=== PATIENT | male | born 1940 | race Caucasian/White ===

== ENCOUNTER 2020-01-14 11:08 | Inpatient (IN) | payer OTHER ==
[2020-01-14 11:16] VITALS: BMI 23.0
[2020-01-14] MEDS ORDERED: SODIUM CHLORIDE 0.9% 1000 ML INFUS.BAG IV ONE (14:00)
[2020-01-14 14:01] LABS: BASO % 0.3 % (0-2.0); EOS % 0.5 % (0-4.5); HEMATOCRIT 42.2 % (35.4-49); HEMOGLOBIN 13.6 GM/dL (11.7-16.9); LYMPH % 8.1 % (8-40); MCH 24.5 pg (25.7-33.7); MCHC 32.3 g/dl (32.0-35.9); MEAN CELL VOLUME 75.9 fl (80-96); MEAN PLT VOLUME 8.6 fl (7.5-11.1); MONO % 7.2 % (3.8-10.2); NEUT % 83.9 % (42.8-82.8); PLATELET COUNT 252 K/MM3 (134-434); RBC 5.56 M/mm3 (4.00-5.60); RDW 16.3 % (11.9-15.9); WHITE BLOOD COUNT 10.1 K/mm3 (4.0-10.0)
[2020-01-14 14:36] LABS: ALBUMIN 3.6 g/dl (3.4-5.0); BILIRUBIN,TOTAL 0.8 mg/dL (0.2-1); BLOOD UREA NITROGEN 20.7 mg/dL (7-18); CALCIUM 9.3 mg/dL (8.5-10.1); CREATININE 1.1 mg/dL (0.55-1.3); TOT PROT 6.8 g/dl (6.4-8.2)
--- NOTE | 2020-01-14 17:11 | PDOC ---
History of Present Illness - General Chief Complaint: Constipation Stated Complaint: CONSTIPATION (1/WK) Time Seen by Provider: 01/14/20 11:59 History Source: Patient, Family - History of Present Illness Initial Comments: 01/14/20 17:39 79M w/hx BPH, HTN, recent evaluation for hematuria followed by Urology (Dr. Treadwell) on abx for UTI (keflex) p/w 6 days of ongoing constipation. Last bowel movement on 01/09/20. He is accompanied by his son. They report that he has had constipation previously. Over the last several days they have attempted miralax, colase at home without success. He denies any diarrhea, fevers, chills. He reports being unable to pass gas, with generalized weakness and abdominal disc omfort. Past History - Medical History Allergies/Adverse Reactions: Allergies Allergy/AdvReac Type Severity Reaction Status Date / Time No Known Allergies Allergy Verified 01/14/20 11:15 Home Medications: Ambulatory Orders Finasteride [Proscar -] 5 mg PO DAILY 11/12/19 Cephalexin [Keflex] 500 mg PO TID 01/14/20 Phenazopyridine HCl [Pyridium] 100 mg PO TID 01/14/20 Tamsulosin HCl [Flomax] 0.4 mg PO DAILY 01/14/20 Anemia: No Asthma: No Cancer: No Cardiac Disorders: No CVA: No COPD: No CHF: No Dementia: No Diabetes: No GI Disorders: No Disorders: Yes HTN: Yes Hypercholesterolemia: No Liver Disease: No Seizures: No Thyroid Disease: No - Psycho-Social/Smoking History Smoking History: Never smoked - Substance Abuse Hx (Audit-C & DAST Scrn) How often the patient has a drink containing alcohol: Never Score: In Men: 4 or > Positive; In Women: 3 or > Positive: 0 Screen Result (Pos requires Nsg. Audit-10AR): Negative *Physical Exam - Vital Signs Last Vital Signs Temp Pulse Resp BP Pulse Ox 98 F 102 H 18 151/78 98 01/14/20 11:11 01/14/20 11:11 01/14/20 11:11 01/14/20 11:11 01/14/20 11:11 ED Treatment Course - LABORATORY CBC & Chemistry Diagram: 01/14/20 13:30 01/14/20 13:30 - ADDITIONAL ORDERS Additional order review: Laboratory Results 01/14/20 13:30 Sodium 135 L Potassium 5.0 Chloride 94 L Carbon Dioxide 33 H Anion Gap 8 BUN 20.7 H Creatinine 1.1 Est GFR (CKD-EPI)AfAm 74.65 Est GFR (CKD-EPI)NonAf 64.41 Random Glucose 118 H Calcium 9.3 Total Bilirubin 0.8 AST 18 ALT 13 Alkaline Phosphatase 66 Total Protein 6.8 Albumin 3.6 01/14/20 13:30 RBC 5.56 MCV 75.9 L MCHC 32.3 RDW 16.3 H MPV 8.6 Neutrophils % 83.9 H Lymphocytes % 8.1 D Monocytes % 7.2 Eosinophils % 0.5 Basophils % 0.3 - RADIOLOGY Radiology Studies Ordered: Category Date Time Status ABDOMEN & PELVIS CT WITH CONTR [CT] Stat CT Scan 01/14/20 12:44 Ordered - Medications Given in the ED: ED Medications Discontinued Medications Generic Name Dose Route Start Last Admin Trade Name Freq PRN Reason Stop Dose Admin Sodium Chloride 1,000 ml 01/14/20 14:00 01/14/20 14:08 Normal Saline - IV 01/14/20 14:01 1,000 ml ONCE ONE Administration Medical Decision Making - Medical Decision Making 01/14/20 19:36 79M w/hx HTN, BPH, recent evaluation for hematuria p/w 6 days of constipation not relieved by usual maalox, colace. Ddx malignancy, SBO, vs uncomplicated constipation. Plan: CBC CMP CT abdomen/pelvis Enema pending CT EKG CXR Dispo: Pending 01/14/20 19:38 Discharge - Discharge Information Problems reviewed: Yes Clinical Impression/Diagnosis: Malignancy Condition: Stable - Admission Yes - Follow up/Referral Referrals: Rachel Santillan MD [Primary Care Provider] - - Patient Discharge Instructions - Post Discharge Activity
--- NOTE | 2020-01-14 18:49 | PDOC ---
Documentation entered by Florencio Wagoner SCRIBE, acting as scribe for Lonnie Madera MD. Lonnie Madera MD: This documentation has been prepared by the louiee, Florencio Wagoner SCRIBE, under my direction and personally reviewed by me in its entirety. I confirm that the documentation accurately reflects all work, treatment, procedures, and medical decision making performed by me. Attending Attestation - Resident Resident Name: SakinaJoe - ED Attending Attestation I have performed the following: I have examined & evaluated the patient, The case was reviewed & discussed with the resident, I agree w/resident's findings & plan, Exceptions are as noted - HPI HPI: 01/14/20 17:36 The patient is a 79 year old male with a significant past medical history of BPH (on finestaride, s/p prostate surgery 2018) and HTN who presents to the emergency department for evaluation of constipation that began one week ago. He notes generalized weakness, generalized abdominal pain, and decreased appetite secondary to constipation. As per patient, LBM was 8/11. The patient also endorses taking colace, miralax, and other OTC laxatives to no relief. The patient denies chest/back pain, cough, and shortness of breath. Denies fever, chills, nausea, vomiting, and/or any symptoms. Denies any other symptoms. Allergies: NKDA Social Hx: None reported PCP: Dr. Santillan Urologist: Eugene Ko - Physicial Exam PE: 01/14/20 17:13 Vitals: Triage vital signs reviewed General Appearance: No acute distress, well nourished, well developed Cardiac: Regular rate and rhythm, no murmurs, no rubs, no gallops Lungs: Clear to auscultation bilateral, good air movement bilaterally Abdomen: Soft, nondistended, normal bowel sounds, nontender to palpation Genitourinary: Rectal: No stool in vault Extremities: Full range of motion to all extremities, no cyanosis, clubbing, or edema Skin: Warm and dry, no rashes or lesions, no rash, no petechiae Psych: Normal mood, normal affect - Medical Decision Making 01/14/20 18:50 79 years old past medical history significant for prostate enlargement presents to the ED with several day history of constipation Mild diffuse abdominal pain on examination no significant stool in the vault a CAT scan was ordered which demonstrates an obstructive mass concerning for malignancy There is associated large bowel dilatation Patient will require admission hydration and surgical consultation All findings discussed with patient and family Discharge - Discharge Information Problems reviewed: Yes Clinical Impression/Diagnosis: Malignancy - Follow up/Referral Referrals: Rachel Santillan MD [Primary Care Provider] - - Patient Discharge Instructions - Post Discharge Activity
[2020-01-14 20:53] LABS: INR 1.14 (0.83-1.09); PROTHROMBIN TIME (PATIENT) 13.5 SEC (9.7-13.0)
[2020-01-14 20:55] LABS: ACTIVATED PTT 30.2 SECONDS (25.2-36.5)
--- NOTE | 2020-01-14 22:43 | PN ---
Teaching Attending Note Name of Resident: Marcy Bakrley ATTENDING PHYSICIAN STATEMENT I saw and evaluated the patient. I reviewed the resident's note and discussed the case with the resident. I agree with the resident's findings and plan as documented. SUBJECTIVE: Patient is a 79 year old man with a PMH of BPH (on Finestaride; prostate surgery in 2018), Hematuria, HTN (not on medication) and currently on Keflex for UTI who presents to the ER for evaluation of constipation that began one week ago. He notes generalized weakness, generalized abdominal pain and decreased appetite secondary to constipation. Reports last bowel movement was on 01/09/2020. Took Colace, Miralax and other OTC laxatives with no relief. Patient denies chest pain, shortness of breath, headache, palpitations, dizziness, fever, chills, nausea, vomiting, diarrhea, dysuria, frequency, urgency, melena, hematochezia or hematuria. Denies alcohol, tobacco or illicit drug use. No sick contacts or recent travels. Family history of unspecified cancer in sister and lung cancer in father. OBJECTIVE: Alert Vital Signs Period Temp Pulse Resp BP Sys/Mena Pulse Ox Last 24 Hr 97.4 F-98 F 74-102 18-18 151-193/77-78 98-98 HEENT: No Jaundice, eye redness or discharge, PERRLA, EOMI. Normocephalic, atraumatic. External ears are normal and hearing is grossly intact. No nasal discharge. Neck: Supple, nontender. No palpable adenopathy or thyromegaly. No JVD Chest: Good effort. Clear to auscultation and percussion. Heart: Regular. No S3, rub or murmur Abdomen: Distended, tense, diffuse abdominal tenderness and no HSM. No rebound or guarding. Normal bowel sounds. Ext: Peripheral pulses intact. No leg edema. Skin: Warm and dry. No petechiae, rash or ecchymosis. Neuro: Alert. Oriented x3. CN 2-12 grossly intact. Sensation grossly intact in all four extremities and DTR are symmetric. Psych: Appropriate mood and affect. Good insight. Home Medications Medication Instructions Recorded Finasteride [Proscar -] 5 mg PO DAILY 11/12/19 Cephalexin [Keflex] 500 mg PO TID 01/14/20 Phenazopyridine HCl [Pyridium] 100 mg PO TID 01/14/20 Tamsulosin HCl [Flomax] 0.4 mg PO DAILY 01/14/20 Abnormal Lab Results 01/14/20 01/14/20 01/14/20 13:30 13:30 20:00 WBC 10.1 H MCV 75.9 L MCH 24.5 L D RDW 16.3 H Absolute Neuts (auto) 8.5 H Neutrophils % 83.9 H PT with INR 13.50 H INR 1.14 H Sodium 135 L Chloride 94 L Carbon Dioxide 33 H BUN 20.7 H Random Glucose 118 H Current Medications Generic Name Dose Route Start Last Admin Trade Name Freq PRN Reason Stop Dose Admin Acetaminophen 1,000 mg 01/15/20 00:08 Ofirmev Injection - IVPB 01/16/20 00:08 Q8H PRN PAIN LEVEL 4 - 6 Finasteride 5 mg 01/15/20 10:00 Proscar - PO DAILY [facility] Hydralazine HCl 5 mg 01/15/20 02:49 Apresoline Injection - IVPUSH Q6H PRN HYPERTENSION Ceftriaxone Sodium 1,000 mg/ 50 mls @ 100 mls/hr 01/15/20 03:20 Dextrose IVPB 01/15/20 03:49 ONCE ONE Tamsulosin HCl 0.4 mg 01/15/20 08:30 Flomax - PO DAILY@0830 [facility] ASSESSMENT AND PLAN: 1. Bowel obstruction/constipation - CT scan of abdomen/pelvis shows an obstructive mass concerning for malignancy distal to obstructed sigmoid colon and associated large bowel dilatation. CXR shows cardiomegaly and calcified aortic knob with no evidence of acute lung disease. EKG shows NSR at 67/minute, PVCs, LAD, RBBB and QTc [address]-T wave changes. No old EKG available for comparison. Initial troponin is negative. Will keep him NPO, get urinalysis, give saline enema, give IV fluids (once BP improves) and consult Surgery. Will get urinalysis, stop the Keflex he was getting for UTI and start IV Ceftriaxone 1 gm q 24 hourd pending urine culture report. Viral testing for COVID-19 ordered and patient placed on airborne, droplet and contact isolation. Will continue comprehensive care for all of patients comorbid conditions including Flomax for BPH. 2. Hypertension For now will use IV Hydralazine 5 mg q 6 hour PRN for systolic BP>160 mmHg. Will start suitable oral antihypertensive drugs before discharge. Subsequently, will revise regimen to ensure [id number] excellent BP control. Patient counseled on the injurious effects of uncontrolled hypertension. Nonpharmacologic measures to control hypertension like weight loss, salt restriction and exercise stressed. Importance of adherence to treatment regimen and attainment of normotension emphasized. 3. DVT prophylaxis - SCD. 4. Advance directives - Full code
[2020-01-15] MEDS ORDERED: ACETAMINOPHEN 1000 MG/100 ML VIAL (NON FORMULARY) IVPB PRN (00:08)
[2020-01-15] MEDS ORDERED: SODIUM PHOSPHATE/NA BIPHOS 133 ML ENEMA RC ONE (00:13)
[2020-01-15] MEDS ORDERED: SODIUM CHLORIDE 1,000 ML IV SCH (00:15)
[2020-01-15] MEDS ORDERED: METOPROLOL TARTRATE 5 MG/5 ML VIAL IVPUSH ONE (00:20)
[2020-01-15] MEDS ORDERED: METOPROLOL TARTRATE 5 MG/5 ML VIAL ONE (00:31)
[2020-01-15] MEDS ORDERED: amLODIPine BESYLATE 5 MG TABLET (FP) PO ONE (01:48)
[2020-01-15] MEDS ORDERED: hydrALAZINE HCL 20 MG/ML VIAL IVPUSH PRN ×2 (02:18→02:49)
[2020-01-15] MEDS ORDERED: amLODIPine BESYLATE 5 MG TABLET (FP) ONE (02:27)
--- NOTE | 2020-01-15 02:29 | HP ---
CHIEF COMPLAINT: constipation PCP: Dr. Santillan HISTORY OF PRESENT ILLNESS: Pt is a 79 yo M with PMH of BPH, HTN, hematuria (in October, being evaluated by Urology outpatient), and recurrent UTIs (currently on Keflex) presenting with 6 days of constipation (last BM on 01/08). Took Colace, Miralax and other OTC laxa tives with no relief. Associated with not passing flatus, 12/07 dull non- radiating periumbilical abdominal pain that has been constant, decreased appetite, and 5-10 lb weight loss (been eating less) over the same duration. Denies nausea, vomiting, hematochezia, night sweats, diarrhea, fever, chills, current dysuria, and current hematuria. ER course was notable for: (1) IVF given (2) Surgery contacted. (3) CT showing obstructive mass at sigmoid colon concerning for malignancy and associated large bowel dilatation, per Imaging manager distribution. Recent Travel: none Sick contacts: none PAST MEDICAL HISTORY: as per HPI PAST SURGICAL HISTORY: 5 different prostate surgeries for BPH; inguinal hernia repair Family hx - Father with lung Ca; sister with unspecified cancer Social History: Lives at home with his son. Retired lithographer. Pt's ?daughter -in-law Heather Dominguez is the Health Care Proxy ([phone]). Smoking: denies Alcohol: 2-3 drinks per week with dinner (wine and beer usually) Drugs: denies Allergies No Known Allergies Allergy (Verified 01/14/20 11:15) HOME MEDICATIONS: Home Medications Medication Instructions Recorded Finasteride [Proscar -] 5 mg PO DAILY 11/12/19 Cephalexin [Keflex] 500 mg PO TID 01/14/20 Phenazopyridine HCl [Pyridium] 100 mg PO TID 01/14/20 Tamsulosin HCl [Flomax] 0.4 mg PO DAILY 01/14/20 REVIEW OF SYSTEMS As per HPI. PHYSICAL EXAMINATION Vital Signs - 24 hr 01/14/20 01/14/20 01/14/20 11:11 17:10 18:03 Temperature 98 F 97.4 F L Pulse Rate 102 H Pulse Rate [ 74 Right Radial] Respiratory 18 18 Rate Blood Pressure 151/78 Blood Pressure 193/78 H 188/77 H [Right Arm] O2 Sat by Pulse 98 98 Oximetry (%) 01/15/20 01/15/20 01:46 02:13 Temperature 98.4 F Pulse Rate Pulse Rate [ 64 Right Radial] Respiratory 19 Rate Blood Pressure 189/78 H Blood Pressure 174/67 H [Right Arm] O2 Sat by Pulse 96 Oximetry (%) GENERAL: Awake, alert, and fully oriented, in no acute distress. HEAD: NCAT EYES: Pupils equal, round and reactive to light, extraocular movements intact, sclera anicteric, conjunctiva clear. EARS, NOSE, THROAT: Ears normal, nares patent, oropharynx clear without exudates. Moist mucous membranes. NECK: Normal range of motion, supple without lymphadenopathy. LUNGS: Breath sounds equal, clear to auscultation bilaterally. No wheezes, and no crackles. No accessory muscle use. HEART: Regular rate and rhythm, normal S1 and S2 without murmur, rub or gallop. ABDOMEN: Very tense abdomen. Significantly distended abdomen. Moderate tenderness to palpation in periumbilical area - no rebound, no guarding. Distant bowel sounds. GERSON: good rectal tone; no bety blood appreciated; no stool in rectal vault; no masses or bulges palpated internally MUSCULOSKELETAL: Moving all extremities equally and spontaneously UPPER EXTREMITIES: 2+ pulses, warm, well-perfused. No peripheral edema. LOWER EXTREMITIES: 2+ pulses, warm, well-perfused. No peripheral edema. NEUROLOGICAL: Sensation to light touch intact. Normal speech. Normal gait. PSYCHIATRIC: Cooperative. Good eye contact. Appropriate mood and affect. SKIN: Warm, dry, normal turgor, no rashes or lesions noted. Laboratory Results - last 24 hr 01/14/20 01/14/20 01/14/20 13:30 13:30 20:00 WBC 10.1 H RBC 5.56 Hgb 13.6 Hct 42.2 MCV 75.9 L MCH 24.5 L D MCHC 32.3 RDW 16.3 H Plt Count 252 D MPV 8.6 Absolute Neuts (auto) 8.5 H Neutrophils % 83.9 H Lymphocytes % 8.1 D Monocytes % 7.2 Eosinophils % 0.5 Basophils % 0.3 Nucleated RBC % 0 PT with INR 13.50 H INR 1.14 H PTT (Actin FS) 30.2 Sodium 135 L Potassium 5.0 Chloride 94 L Carbon Dioxide 33 H Anion Gap 8 BUN 20.7 H Creatinine 1.1 Est GFR (CKD-EPI)AfAm 74.65 Est GFR (CKD-EPI)NonAf 64.41 Random Glucose 118 H Calcium 9.3 Total Bilirubin 0.8 AST 18 ALT 13 Alkaline Phosphatase 66 Troponin I Total Protein 6.8 Albumin 3.6 Blood Type Antibody Screen 01/14/20 01/14/20 20:00 20:00 WBC RBC Hgb Hct MCV MCH MCHC RDW Plt Count MPV Absolute Neuts (auto) Neutrophils % Lymphocytes % Monocytes % Eosinophils % Basophils % Nucleated RBC % PT with INR INR PTT (Actin FS) Sodium Potassium Chloride Carbon Dioxide Anion Gap BUN Creatinine Est GFR (CKD-EPI)AfAm Est GFR (CKD-EPI)NonAf Random Glucose Calcium Total Bilirubin AST ALT Alkaline Phosphatase Troponin I < 0.02 Total Protein Albumin Blood Type O POSITIVE Antibody Screen Negative ASSESSMENT/PLAN: Pt is a 79 yo M with PMH of BPH, HTN, hematuria (in October, being evaluated by Urology outpatient), and recurrent UTIs (currently on Keflex) presenting with 6 days of constipation and inability pass flatus; CT scan significant for obstructive mass at sigmoid colon concerning for malignancy. Pt being admitted for large bowel obstruction. #Large Bowel Obstruction CT scan of abdomen/pelvis showing obstructive mass at sigmoid colon concerning for malignancy and associated large bowel dilatation, per Imaging manager distribution. - awaiting final read; pt may be need biopsy of mass + heme/onc consult - keep pt NPO - Surgery consulted; appreciate recs - will hold IVF for now as pt is hypertensive - IV tylenol prn for pain control - saline enema #Hypertension Pt not taking home BP meds currently; used to take metoprolol and amlodipine several years ago but now diet-controlled Pt not hypertensive on arrival but because hypertensive to 180s/190s systolic - IV hydralazine 5 q6h prn; hold if SPB <160 #BPH Hx - continue with home flomax 0.4 mg daily - continue home proscar 5 mg po daily #Recurrent UTI Hx pt started on keflex d/t recurrent UTIs; currently on Keflex 500 po tid at home - will give him one time dose IV rocephin 1g - f/u UA, Urine Culture #DVT PPx - SCDs #FEN -F - holding IVF for now; as pt is hypertensive -E - monitor; replete lytes prn -N - NPO #Dispo - Admit to med-surg Code status: full code Family Medical History Family History: As Documented Visit type - Medication Review Med list reviewed for High Risk Meds patients 65 and older: Yes - Emergency Visit Emergency Visit: Yes ED Registration Date: 01/14/20 Care time: The patient presented to the Emergency Department on the above date and was hospitalized for further evaluation of their emergent condition. - New Patient This patient is new to me today: Yes Date on this admission: 01/15/20 - Critical Care Critical Care patient: No ATTENDING PHYSICIAN STATEMENT I saw and evaluated the patient. I reviewed the resident's note and discussed the case with the resident. I agree with the resident's findings and plan as documented. SUBJECTIVE: OBJECTIVE: ASSESSMENT AND PLAN:
[2020-01-15] MEDS ORDERED: CEFTRIAXONE 1 GM/50 ML BAG ONE (03:11)
[2020-01-15] MEDS ORDERED: CEFTRIAXONE 1 GM in DEXTROSE 5%-WATER - 50 ML IVPB ONE (03:20)
[2020-01-15] MEDS ORDERED: CEPHALEXIN MONOHYDRATE 500 MG CAPSULE (UD) PO SCH (06:00)
--- NOTE | 2020-01-15 06:08 | PDOC ---
History of Present Illness - General Chief Complaint: Constipation Stated Complaint: CONSTIPATION (1/WK) Time Seen by Provider: 01/14/20 11:59 - History of Present Illness Initial Comments: 79M w/hx BPH, HTN, recent evaluation for hematuria followed by Urology (Dr. Treadwell) on abx for UTI (keflex) p/w 6 days of ongoing constipation. Last bowel movement on 01/09/20. He is accompanied by his son. They report that he has had constipation previously. Over the last several days they have attempted miralax, colase at home without success. He denies any diarrhea, fevers, chills. He reports being unable to pass gas, with generalized weakness and abdominal discomfort. Constitutional: No Weight Change, No Fever, No Chills, No Night Sweats, No Fatigue, No Malaise ENT/Mouth: No Hearing Changes, No Ear Pain, No Nasal Congestion, No Sinus Pain, No Hoarseness, No sore throat, No Rhinorrhea, No Swallowing Difficulty Eyes: No Eye Pain, No Swelling, No Redness, No Foreign Body, No Discharge, No Vision Changes Cardiovascular: No Chest Pain, No SOB, No PND, No Dyspnea on Exertion, No Orthopnea, No Claudication, No Edema, No Palpitations Respiratory: No Cough, No Sputum, No Wheezing, No Smoke Exposure, No Dyspnea Gastrointestinal: No Nausea, No Vomiting, No Diarrhea, No Constipation, No Pain, No Heartburn, No Anorexia, No Dysphagia, No Hematochezia, No Melena, No Flatulence, No Jaundice Genitourinary: No Dysmenorrhea, No DUB, No Dyspareunia, No Dysuria, No Urinary Frequency, No Hematuria, No Urinary Incontinence, No Urgency, No Flank Pain, No Urinary Flow Changes, No Hesitancy Musculoskeletal: No Arthralgias, No Myalgias, No Joint Swelling, No Joint Stiffness, No Back Pain, No Neck Pain, No Injury History Skin: No Skin Lesions, No Pruritis, No Hair Changes, No Breast/Skin Changes, No Nipple Discharge Neuro: No Weakness, No Numbness, No Paresthesias, No Loss of Consciousness, No Syncope, No Dizziness, No Headache, No Coordination Changes, No Recent Falls Psych: No Anxiety/Panic, No Depression, No Insomnia, No Personality Changes, No Delusions, No Rumination, No SI/HI/AH/VH, No Social Issues, No Memory Changes, No Violence/Abuse Hx., No Eating Concerns Heme/Lymph: No Bruising, No Bleeding, No Transfusions History, No Lymphadenopathy Endocrine: No Polyuria, No Polydipsia, No Temperature Intolerance Past History - Medical History Allergies/Adverse Reactions: Allergies Allergy/AdvReac Type Severity Reaction Status Date / Time No Known Allergies Allergy Verified 01/14/20 11:15 Home Medications: Ambulatory Orders Finasteride [Proscar -] 5 mg PO DAILY 11/12/19 Cephalexin [Keflex] 500 mg PO TID 01/14/20 Phenazopyridine HCl [Pyridium] 100 mg PO TID 01/14/20 Tamsulosin HCl [Flomax] 0.4 mg PO DAILY 01/14/20 Anemia: No Asthma: No Cancer: No Cardiac Disorders: No CVA: No COPD: No CHF: No Dementia: No Diabetes: No GI Disorders: No Disorders: Yes HTN: Yes Hypercholesterolemia: No Liver Disease: No Seizures: No Thyroid Disease: No - Psycho-Social/Smoking History Smoking History: Never smoked - Substance Abuse Hx (Audit-C & DAST Scrn) How often the patient has a drink containing alcohol: Never Score: In Men: 4 or > Positive; In Women: 3 or > Positive: 0 Screen Result (Pos requires Nsg. Audit-10AR): Negative *Physical Exam - Vital Signs Last Vital Signs Temp Pulse Resp BP Pulse Ox 98.4 F 64 19 174/67 H 96 01/15/20 02:13 01/15/20 02:13 01/15/20 02:13 01/15/20 02:13 01/15/20 02:13 - Physical Exam General Appearance: Yes: Nourished, Appropriately Dressed HEENT: positive: EOMI, BERYL, Normal ENT Inspection, Normal Voice Neck: positive: Trachea midline, Normal Thyroid Respiratory/Chest: positive: Lungs Clear, Normal Breath Sounds Cardiovascular: positive: Regular Rhythm, Regular Rate, S1, S2 Gastrointestinal/Abdominal: positive: Normal Bowel Sounds, Tender, Protuberent, Distended Musculoskeletal: positive: Normal Inspection Extremity: positive: Normal Capillary Refill, Normal Inspection, Normal Range of Motion Integumentary: positive: Normal Color, Dry, Warm Neurologic: positive: telesales team leader II-XII NML intact, Fully Oriented, Alert, Normal Mood/Affect, Normal Response, Motor Strength 5/5 ED Treatment Course - LABORATORY CBC & Chemistry Diagram: 01/14/20 13:30 01/14/20 13:30 - ADDITIONAL ORDERS Additional order review: Laboratory Results 01/14/20 01/14/20 01/14/20 20:00 20:00 20:00 PT with INR 13.50 H INR 1.14 H PTT (Actin FS) 30.2 Troponin I < 0.02 Blood Type O POSITIVE Antibody Screen Negative 01/14/20 13:30 RBC 5.56 MCV 75.9 L MCHC 32.3 RDW 16.3 H MPV 8.6 Neutrophils % 83.9 H Lymphocytes % 8.1 D Monocytes % 7.2 Eosinophils % 0.5 Basophils % 0.3 - Medications Given in the ED: ED Medications Discontinued Medications Generic Name Dose Route Start Last Admin Trade Name Freq PRN Reason Stop Dose Admin Amlodipine Besylate 5 mg 01/15/20 01:48 01/15/20 03:39 Norvasc - PO 01/15/20 01:49 5 mg ONCE ONE Administration Metoprolol Tartrate 5 mg 01/15/20 00:20 01/15/20 01:46 Lopressor Injection - IVPUSH 01/15/20 00:21 5 mg ONCE ONE Administration Sodium Chloride 1,000 ml 01/14/20 14:00 01/14/20 14:08 Normal Saline - IV 01/14/20 14:01 1,000 ml ONCE ONE Administration Medical Decision Making - Medical Decision Making 79M w/hx BPH, HTN, recent evaluation for hematuria followed by Urology (Dr. Treadwell) on abx for UTI (keflex) p/w 6 days of ongoing constipation. Last bowel movement on 01/09/20. He is accompanied by his son. They report that he has had constipation previously. Over the last several days they have attempted miralax, colase at home without success. He denies any diarrhea, fevers, chills. He reports being unable to pass gas, with generalized weakness and abdominal discomfort. Vitals wnl on arrival, abdomen protuberant, distended, and ttp. plan: CT abdomen, UA, UC, labs, ekg, CXR reassess: CT abdomen revealed ~5cm mass in sigmoid colon with proximal obstruction. Labs, ekg, cxr wnl. Spoke with Dr. Steele who recommended NPO and admission. dispo: admit patient for managent of obstructed bowel 01/15/20 06:10 01/15/20 06:11 01/15/20 06:13 Discharge - Discharge Information Problems reviewed: Yes Clinical Impression/Diagnosis: Malignancy Condition: Stable - Follow up/Referral - Patient Discharge Instructions - Post Discharge Activity
[2020-01-15 07:38] LABS: URINE COLOR BROWN
[2020-01-15 07:39] LABS: URINE APPEARANCE TURBID; URINE BILIRUBIN 1 (NEGATIVE); URINE GLUCOSE (UA) NEGATIVE (NEGATIVE); URINE KETONE 3+ (NEGATIVE)
[2020-01-15 07:40] LABS: URINE LEUK ESTERASE 2+ (NEGATIVE); URINE NITRITE 2+ (NEGATIVE); URINE PROTEIN 3+ (NEGATIVE); URINE UROBILINOGEN 1 mg/dL (0.2-1.0)
[2020-01-15 07:43] LABS: URINE RBC 313 /uL (0-23.9)
[2020-01-15 07:44] LABS: EPI CELLS 41 /uL (0-25.1); HYALINE CASTS 4 /uL (0-3.1); URINE BACTERIA 22306 /uL (0-1359); URINE WBC 12193 /uL (0-25.8)
[2020-01-15 08:10] LABS: HEMATOCRIT 45.6 % (35.4-49); HEMOGLOBIN 14.7 GM/dL (11.7-16.9); MCH 24.4 pg (25.7-33.7); MCHC 32.2 g/dl (32.0-35.9); MEAN CELL VOLUME 75.7 fl (80-96); MEAN PLT VOLUME 8.4 fl (7.5-11.1); PLATELET COUNT 386 K/MM3 (134-434); RBC 6.02 M/mm3 (4.00-5.60); RDW 16.4 % (11.9-15.9)
--- NOTE | 2020-01-15 08:25 | CONSULT ---
<Gregory Stevenson P - Last Filed: 01/15/20 08:51> - Consultation REQUESTING PROVIDER: Dennis Steele - General Surgery CONSULT REQUEST: We have been asked to surgically evaluate this patient for large bowel obstruction. PCP: Rachel Santillan HPI: Called to darnell 79 yo male w/ PMHx as noted below. Presents to [facility] ED secondary to c/o inability to pass flatus or have bowel movement x6 days. States he tried taking laxatives thinking that would help to alleviate his abdominal discomfort...no relief. Pain is periumbilical. Initially 12/07. Now 09/07 after receiving pain medication. Admits to a 5-10lb weight loss because he's not eating. States he never had a colonoscopy or EGD. While in the ED, patient had an ABD/Pelvis CT which identified obstructing mass (apple core lesion) 3.9 cm x 3.4 cm in proximal sigmoid, bilateral inguinal hernias containing fat/ascites. Denies n/v/f/c, CP, palpitations, SOB or FELIZ. Denies melena, hematochezia, night sweats, dysuria, or hematuria. FHx: Father with lung Ca Sister with unspecified cancer Social History: Lives at home with his son. Retired lithographer. Pt's ?[id number] Heather Dominguez is the Health Care Proxy ([phone]). Smoking: denies Alcohol: 2-3 drinks per week with dinner (wine and beer usually) Drugs: denies PMHx: BPH, HTN, Hematuria, Recurrent UTIs, Hemorrhoids PSHx: 5 different prostate surgeries for BPH; inguinal hernia repair Home Meds Proscar 5 mg PO Daily Keflex 500 mg PO TID Pyridium 100 mg PO TID Flomax 0.4 mg PO Daily Allergies: NKDA ROS CONSTITUTIONAL: Absent: diaphoresis, generalized weakness, malaise, + loss of appetite and weight change CARDIOVASCULAR: Absent: syncope, irregular heart rate, lightheadedness, peripheral edema RESPIRATORY: Absent: cough, wheezing, stridor, hemoptysis GASTROINTESTINAL: + constipation GENITOURINARY: Absent:frequency, urgency, hesitancy, flank pain, genital pain MUSCULOSKELETAL: Absent: myalgia, arthralgia, joint swelling, back pain, neck pain SKIN: Absent: rash, itching, pallor HEMATOLOGIC/IMMUNOLOGIC: Absent: easy bleeding, easy bruising, lymphadenopathy NEUROLOGIC: Absent: headache, focal weakness, paresthesias, dizziness, unsteady gait, seizure, mental status changes, bladder or bowel incontinence PSYCHIATRIC: Absent: anxiety, depression, suicidal or homicidal ideation, hallucinations. PHYSICAL EXAM: GENERAL: a&o. nad HEAD: nc. at. EYES: PERRL, sclera anicteric, conjunctiva clear. NECK: Normal ROM, supple without lymphadenopathy, JVD, or masses. LUNGS: unlabored respirations on room air HEART: rrr ABDOMEN: Softly distended. Milld periumbilical/LLQ ttp. No guarding or rigidity. No organomegaly. MUSCULOSKELETAL: No CVAT bilat UE: 2+ pulses, warm, well-perfused. No cyanosis. Cap refill <2 seconds. No peripheral edema. LE: 2+ pulses, warm, well-perfused. No calf tenderness. No peripheral edema. Rectal: good tone. no stool in rectal vault. No bety blood PSYCH: Cooperative. Good eye contact. Appropriate mood and affect. SKIN: Warm, dry, normal turgor, no rashes or lesions noted. Last Vital Signs Temp Pulse Resp BP Pulse Ox 97.6 F 69 18 161/71 98 01/15/20 06:40 01/15/20 06:40 01/15/20 06:40 01/15/20 06:40 01/15/20 06:40 CBC 01/15/20 07:40 INR, PTT INR 1.14 (0.83-1.09) H 01/14/20 20:00 Blood Type Blood Type O POSITIVE 01/14/20 20:00 Serology Test 01/15/20 03:33 COVID-19 ([place]) Pending Problem List - Problems (1) Large bowel obstruction Assessment/Plan: 79 yo male admitted with inability to pass flatus or have bm x6 days. Denies ever having a colonoscopy/egd. While in the ED they imaged his abd via CT scan and identified obstructing mass (apple core lesion) 3.9 cm x 3.4 cm in proximal sigmoid, bilateral inguinal hernias containing fat/ascites. -NPO -IVF -Pre-op for sigmoid resection 01/16/20 -Medical optimization/clearance (Dr. Santillan aware) -Cardio clearance -Covid pending -Administer Entereg 12 mg PO x1 1 hour prior to surgical incision -SCIP antibitoic ordered to be given 1 hour prior to surgical incision - Invanz -2 pRBC on-hold for OR -f/u CEA -Consent to be obtained by Dr. Steele Above plan discussed with Dr. Steele and agrees. Code(s): K56.609 - UNSP INTESTNL OBST, UNSP TO PARTIAL VERSUS COMPLETE OBST (2) HTN (hypertension) Code(s): I10 - ESSENTIAL (PRIMARY) HYPERTENSION (3) BPH (benign prostatic hyperplasia) Code(s): N40.0 - BENIGN PROSTATIC HYPERPLASIA WITHOUT LOWER URINRY TRACT SYMP (4) Hemorrhoids Code(s): K64.9 - UNSPECIFIED HEMORRHOIDS Visit type - Case Type Case Type: ED Admission - Emergency Emergency Visit: Yes ED Registration Date: 01/14/20 Care time: The patient presented to the Emergency Department on the above date and was hospitalized for further evaluation of their emergent condition. - New patient This patient is new to me today: Yes Date on this admission: 01/15/20 <Dennis Steele - Last Filed: 01/15/20 22:06> - Consultation REQUESTING PROVIDER: CONSULT REQUEST: We have been asked to surgically evaluate this patient for (specify). PCP:Rachel Santillan HISTORY OF PRESENT ILLNESS: PMHx: PSHx: Home Medications Medication Instructions Recorded Finasteride [Proscar -] 5 mg PO DAILY 11/12/19 Cephalexin [Keflex] 500 mg PO TID 01/14/20 Phenazopyridine HCl [Pyridium] 100 mg PO TID 01/14/20 Tamsulosin HCl [Flomax] 0.4 mg PO DAILY 01/14/20 Allergies Allergy/AdvReac Type Severity Reaction Status Date / Time No Known Allergies Allergy Verified 01/14/20 11:15 REVIEW OF SYSTEMS: CONSTITUTIONAL: Absent: fever, chills, diaphoresis, generalized weakness, malaise, loss of appetite, weight change CARDIOVASCULAR: Absent: chest pain, syncope, palpitations, irregular heart rate, lightheadedness, peripheral edema RESPIRATORY: Absent: cough, shortness of breath, dyspnea with exertion, wheezing, stridor, hemoptysis GASTROINTESTINAL: Absent: abdominal pain, abdominal distension, nausea, vomiting, diarrhea, constipation, melena, hematochezia GENITOURINARY: Absent: dysuria, frequency, urgency, hesitancy, hematuria, flank pain, genital pain MUSCULOSKELETAL: Absent: myalgia, arthralgia, joint swelling, back pain, neck pain SKIN: Absent: rash, itching, pallor HEMATOLOGIC/IMMUNOLOGIC: Absent: easy bleeding, easy bruising, lymphadenopathy NEUROLOGIC: Absent: headache, focal weakness, paresthesias, dizziness, unsteady gait, seizure, mental status changes, bladder or bowel incontinence PSYCHIATRIC: Absent: anxiety, depression, suicidal or homicidal ideation, hallucinations. PHYSICAL EXAM: GENERAL: Awake, alert, and fully oriented, in no acute distress. HEAD: Normal with no signs of trauma. EYES: PERRL, sclera anicteric, conjunctiva clear. NECK: Normal ROM, supple without lymphadenopathy, JVD, or masses. LUNGS: Clear to auscultation bilat anteriorly. No wheezes, and no crackles. No accessory muscle use. HEART: Regular rate and rhythm. No murmurs ABDOMEN: Soft, nontender, not distended, normoactive bowel sounds, no guarding, no rebound, no masses. No organomegaly. MUSCULOSKELETAL: Normal ROM at all joints. No bony deformities or tenderness. No CVA tenderness. UPPER EXTREMITIES: 2+ pulses, warm, well-perfused. No cyanosis. Cap refill <2 seconds. No peripheral edema. LOWER EXTREMITIES: 2+ pulses, warm, well-perfused. No calf tenderness. No peripheral edema. NEUROLOGICAL: Normal speech, gait not observed. PSYCH: Cooperative. Good eye contact. Appropriate mood and affect. SKIN: Warm, dry, normal turgor, no rashes or lesions noted. Vital Signs Temperature 98.0 F 01/15/20 17:49 Pulse Rate 76 01/15/20 17:49 Respiratory Rate 18 01/15/20 17:49 Blood Pressure 139/69 01/15/20 17:49 O2 Sat by Pulse Oximetry (%) 98 01/15/20 10:00 Lab Results WBC 16.0 K/mm3 (4.0-10.0) H 01/15/20 07:40 RBC 6.02 M/mm3 (4.00-5.60) H 01/15/20 07:40 Hgb 14.7 GM/dL (11.7-16.9) 01/15/20 07:40 Hct 45.6 % (35.4-49) 01/15/20 07:40 MCV 75.7 fl (80-96) L 01/15/20 07:40 MCHC 32.2 g/dl (32.0-35.9) 01/15/20 07:40 RDW 16.4 % (11.9-15.9) H 01/15/20 07:40 Plt Count 386 K/MM3 (134-434) D 01/15/20 07:40 INR 1.14 (0.83-1.09) H 01/14/20 20:00 Sodium 136 mmol/L (136-145) 01/15/20 07:40 Potassium 4.2 mmol/L (3.5-5.1) 01/15/20 07:40 Chloride 96 mmol/L (98-107) L 01/15/20 07:40 Carbon Dioxide 28 mmol/L (21-32) 01/15/20 07:40 Anion Gap 13 MMOL/L (8-16) 01/15/20 07:40 BUN 23.7 mg/dL (7-18) H 01/15/20 07:40 Creatinine 1.0 mg/dL (0.55-1.3) 01/15/20 07:40 Random Glucose 102 mg/dL (74-106) 01/15/20 07:40 Calcium 9.5 mg/dL (8.5-10.1) 01/15/20 07:40 Blood Type O POSITIVE 01/14/20 20:00 Antibody Screen Negative 01/14/20 20:00
[2020-01-15 08:32] LABS: ALBUMIN 3.9 g/dl (3.4-5.0); BLOOD UREA NITROGEN 23.7 mg/dL (7-18); CALCIUM 9.5 mg/dL (8.5-10.1); MAGNESIUM 2.3 mg/dL (1.8-2.4); PHOSPHOROUS 4.3 mg/dL (2.5-4.9); POTASSIUM 4.2 mmol/L (3.5-5.1); TOT PROT 7.2 g/dl (6.4-8.2)
--- NOTE | 2020-01-15 09:16 | EKG ---
Test Reason : Blood Pressure : / mmHG Vent. Rate : 067 BPM Atrial Rate : 067 BPM P-R Int : 196 ms QRS Dur : 108 ms QT Int : 412 ms P-R-T Axes : 060 -68 043 degrees QTc Int : 435 ms SINUS RHYTHM WITH PREMATURE SUPRAVENTRICULAR COMPLEXES LEFT AXIS DEVIATION RIGHT BUNDLE BRANCH BLOCK ABNORMAL ECG NO PREVIOUS ECGS AVAILABLE Confirmed by TRAN COLE MD ([id number]) on 01/15/2020 9:15:29 AM Referred By: Confirmed By:TRAN COLE MD
[2020-01-15] MEDS ORDERED: TAMSULOSIN HCL 0.4 MG CAP ONE (09:39)
[2020-01-15] MEDS: TAMSULOSIN HCL 0.4 MG CAP PO SCH (09:50)
[2020-01-15] MEDS: FINASTERIDE 5 MG TABLET (FP) PO SCH (09:50)
[2020-01-15] MEDS ORDERED: ENOXAPARIN NA (PORCINE) 40 MG/0.4 ML DISP.SYRIN SQ SCH (10:00)
--- NOTE | 2020-01-15 10:15 | PN ---
Progress Note, Physician History of Present Illness: Pt seen/ examined in er chart is reviewed awake/ comfortable denies cp/sob + constipation - Current Medication List Current Medications: Active Medications Acetaminophen (Ofirmev Injection -) 1,000 mg IVPB Q8H PRN PRN Reason: PAIN LEVEL 4 - 6 Stop: 01/16/20 00:08 Alvimopan (Entereg Capsule (Restricted) -) 12 mg PO ONCE ONE Stop: 01/16/20 07:01 Finasteride (Proscar -) 5 mg PO DAILY [facility] Last Admin: 01/15/20 09:50 Dose: 5 mg Documented by: Hydralazine HCl (Apresoline Injection -) 5 mg IVPUSH Q6H PRN PRN Reason: HYPERTENSION Ertapenem 1 gm/ Sodium (Chloride) 50 mls @ 50 mls/hr IVPB ONCE ONE Stop: 01/16/20 07:59 Ceftriaxone Sodium 1 gm/ (Dextrose) 50 mls @ 200 mls/hr IVPB DAILY [facility]; Protocol Tamsulosin HCl (Flomax -) 0.4 mg PO DAILY@0830 [facility] Last Admin: 01/15/20 09:50 Dose: 0.4 mg Documented by: - Objective Vital Signs: Vital Signs Temperature 97.6 F 01/15/20 06:40 Pulse Rate 69 01/15/20 06:40 Respiratory Rate 18 01/15/20 06:40 Blood Pressure 161/71 01/15/20 06:40 O2 Sat by Pulse Oximetry (%) 98 01/15/20 06:40 Constitutional: Yes: No Distress, Calm Eyes: Yes: Conjunctiva Clear Neck: Yes: Supple Cardiovascular: Yes: Regular Rate and Rhythm Respiratory: Yes: CTA Bilaterally Gastrointestinal: Yes: Soft, Distention Edema: No Neurological: Yes: Alert Psychiatric: Yes: Alert Labs: CBC, BMP 01/15/20 07:40 01/15/20 07:40 INR, PTT INR 1.14 (0.83-1.09) H 01/14/20 20:00 - ....Imaging Cat Scan: Report Reviewed Problem List - Problems (1) UTI (urinary tract infection) Code(s): N39.0 - URINARY TRACT INFECTION, SITE NOT SPECIFIED (2) HTN (hypertension) Code(s): I10 - ESSENTIAL (PRIMARY) HYPERTENSION Qualifiers: Hypertension type: essential hypertension Qualified Code(s): I10 - Essentia l (primary) hypertension (3) Large bowel obstruction Code(s): K56.609 - UNSP INTESTNL OBST, UNSP TO PARTIAL VERSUS COMPLETE OBST (4) Right bundle branch block (RBBB) on electrocardiogram (ECG) Code(s): I45.10 - UNSPECIFIED RIGHT BUNDLE-BRANCH BLOCK Assessment/Plan Discussed Abx Cardiology clearance-- requested by surgical team For OR tomorrow Covid pending fluids will follow
--- NOTE | 2020-01-15 10:32 | CON.CARD ---
Consult Consult Specialty:: Cardiology Referred by:: Rachel Santillan MD Reason for Consultation:: Pre-operative CV evaluation - History of Present Illness Chief Complaint: Constipation History of Present Illness: Pt is a 79 yo M with PMH of BPH, HTN, hematuria (in October, being evaluated by Urology outpatient), and recurrent UTIs (currently on Keflex) presenting with 6 days of constipation (last BM on 01/08) and no flatus. Took Colace, Miralax and other OTC laxatives with no relief. 12/07 dull non-radiating periumbilical abdomi nal pain that has been constant, decreased appetite, and 5-10 lb weight loss (been eating less) over the same duration. Denies nausea, vomiting, hematochezia, night sweats, diarrhea, fever, chills, current dysuria, and current hematuria. Given enema is small BM. Patient reports being asymptomatic from CV-standpoint and denies chest pain, dyspnea, near or true syncope, palpitations, orthopnea, PND, LE edema or decrement in exercise capacity. ER course was notable for: (1) IVF given (2) Surgery contacted. (3) CT showing obstructive mass at sigmoid colon concerning for malignancy and associated large bowel dilatation, possible colovesicular fistula - History Source History Provided By: Patient Limitations to Obtaining History: No Limitations - Alcohol/Substance Use Hx Alcohol Use: Yes (WINE) - Smoking History Smoking history: Never smoked Home Medications - Allergies Allergies/Adverse Reactions: Allergies Allergy/AdvReac Type Severity Reaction Status Date / Time No Known Allergies Allergy Verified 01/14/20 11:15 - Home Medications Home Medications: Ambulatory Orders Finasteride [Proscar -] 5 mg PO DAILY 11/12/19 Cephalexin [Keflex] 500 mg PO TID 01/14/20 Phenazopyridine HCl [Pyridium] 100 mg PO TID 01/14/20 Tamsulosin HCl [Flomax] 0.4 mg PO DAILY 01/14/20 Review of Systems - Review of Systems Gastrointestinal: reports: Constipation Vital Signs: Vital Signs Temperature 97.6 F 01/15/20 06:40 Pulse Rate 69 01/15/20 06:40 Respiratory Rate 18 01/15/20 06:40 Blood Pressure 161/71 01/15/20 06:40 O2 Sat by Pulse Oximetry (%) 98 01/15/20 06:40 Constitutional: Yes: No Distress, Anxious, Thin Neck: Yes: Supple Respiratory: Yes: Regular, CTA Bilaterally Gastrointestinal: Yes: Soft, Distention, Hypoactive Bowel Sounds Cardiovascular: Yes: Regular Rate and Rhythm JVD: No Carotid Bruit: No Heart Sounds: Yes: S1, S2 Murmur: Yes: Systolic Murmur, Grade 1 Edema: No - Other Data Labs, Other Data: CBC, BMP 01/15/20 07:40 01/15/20 07:40 INR, PTT INR 1.14 (0.83-1.09) H 01/14/20 20:00 Troponin, BNP 01/14/20 20:00 Troponin I < 0.02 Troponin, BNP 01/14/20 20:00 Troponin I < 0.02 NSR @ 67 PAC, LAD, RBBBB Ejection Fraction %: LVEF > or = 40 % Problem List - Problems (1) Pre-operative cardiovascular examination Code(s): Z01.810 - ENCOUNTER FOR PREPROCEDURAL CARDIOVASCULAR EXAMINATION (2) HTN (hypertension) Code(s): I10 - ESSENTIAL (PRIMARY) HYPERTENSION Qualifiers: Hypertension type: essential hypertension Qualified Code(s): I10 - Essential (primary) hypertension (3) Large bowel obstruction Code(s): K56.609 - UNSP INTESTNL OBST, UNSP TO PARTIAL VERSUS COMPLETE OBST (4) Right bundle branch block (RBBB) on electrocardiogram (ECG) Code(s): I45.10 - UNSPECIFIED RIGHT BUNDLE-BRANCH BLOCK Assessment/Plan 1. Pre-op CV evaluation 2. Prox sigmoid obstruction suspect malignancy with possible colovesicular fistula 3. HTN 4. Abnormal ECG - RBBB 5. BPH P:1. Start Toprol XL 25 qd 2. Given absence of symptoms of acute coronary syndrome, decompensated CHF or malignant arrhythmia, may proceed with colon resection from CV standpoint 3. F/u echocardiogram, Covid PCR, CEA pre-op, Entereg and empiric periop abx 4. Thank you for consultative opportunity
[2020-01-15] MEDS: metoPROLOL SUCCINATE 25 MG TAB.SR.24H (FP) PO SCH (10:44)
[2020-01-15] MEDS ORDERED: metoPROLOL SUCCINATE 25 MG TAB.SR.24H (FP) ONE (10:44)
--- NOTE | 2020-01-15 14:37 | ECHO ---
Name: SHAWN, TALITA Exam:Adult Echocardiogram Study Date: 01/15/2020 12:05 PM Age: 79 yrs Reason For Study: Pre-op Height: 72 in Weight: 170 lb BSA: 2.0 m2 MMode/2D Measurements & Calculations IVSd: 1.1 cm Ao root diam: 3.0 cm LVIDd: 3.8 cm LA dimension: 3.4 cm LVIDs: 2.7 cm LVPWd: 1.2 cm EDV(Teich): 60.3 ml LVOT diam: 2.0 cm ESV(Teich): 27.9 ml LAV (MOD-bp): 53.1 ml Doppler Measurements & Calculations MV E max mansoor: 41.6 cm/sec Ao V2 max: 123.8 cm/sec MV A max mansoor: 99.8 cm/sec Ao max P.1 mmHg MV E/A: 0.42 AI P1/2t: 402.6 msec MV dec time: 0.19 sec MARKY(V,D): 2.0 cm2 AI max mansoor: 323.6 cm/sec LV V1 max P.3 mmHg AI max P.9 mmHg LV V1 max: 76.0 cm/sec AI dec slope: 235.4 cm/sec2 TR max mansoor: 238.9 cm/sec PA V2 max: 90.2 cm/sec TR max P.8 mmHg PA max P.3 mmHg Med Peak E' Mansoor: 9.5 cm/sec PI Vmax: 163.7 cm/sec Med E/e': 4.4 Lat Peak E' Mansoor: 9.2 cm/sec Lat E/e': 4.5 Procedure A complete two-dimensional transthoracic echocardiogram was performed (2D, M-mode, Doppler and color flow Doppler). Technically limited study. Left Ventricle The left ventricle is normal in size. Left ventricular systolic function is normal. Ejection Fraction = 60- 65%. The transmitral spectral Doppler flow pattern is normal for age. No regional wall motion abnorma lities noted. Right Ventricle The right ventricle is normal size. The right ventricular systolic function is normal. Atria The left atrial size is normal. LA volume index is 27 ml/m2. Right atrial size is normal. Mitral Valve There is mild mitral annular calcification. There is trace mitral regurgitation. Tricuspid Valve The tricuspid valve is normal in structure and function. There is mild tricuspid regurgitation. Aortic Valve There is mild aortic sclerosis.;. Mild aortic regurgitation. Pulmonic Valve The pulmonic valve is not well visualized. Great Vessels The aortic root is normal size. Pericardium/Pleura There is no pericardial effusion. Interpretation Summary Technically limited study The left ventricle is normal in size. Left ventricular systolic function is normal. No regional wall motion abnormalities noted. Ejection Fraction = 60-65%. The transmitral spectral Doppler flow pattern is normal for age. The right ventricular systolic function is normal. The left atrial size is normal. Right atrial size is normal. There is mild mitral annular calcification. There is trace mitral regurgitation. There is mild tricuspid regurgitation. There is mild aortic sclerosis. Mild aortic regurgitation. There is no pericardial effusion. Silvano Yao MD 01/15/2020 02:37 PM
--- NOTE | 2020-01-15 22:04 | PN ---
Progress Note (short form) - Note Progress Note: Attending Surgeon I had an extensive pre-op and post consultation discussion over a period of 45 with the patient and his son Jossue Tapia w/the aid of diagrams as to the nature of the patients problem and the proposed surgery; in addition a close family friend/relative participated in the discussion as well via phone from [place]. 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 and my ability to tx. this problem; they were all answered as well as the r/b/t/a's to the proposed plan; they had some concerns and after leaving the patients bedside and the hospital I was informed that they wished to proceed as plann for ; informed consent will be obtained in the morning. Dennis Steele MD FACS
[2020-01-16] MEDS ORDERED: ALVIMOPAN 12 MG CAP PO ONE (07:00)
[2020-01-16] MEDS ORDERED: ERTAPENEM SODIUM 1 GM in SODIUM CHLORIDE 50 ML IVPB ONE (07:00)
[2020-01-16] MEDS ORDERED: ROCURONIUM BROMIDE 50 MG/5 ML SYRINGE ONE ×4 (07:39→12:57)
[2020-01-16] MEDS ORDERED: PROPOFOL 20 ML ONE (07:39)
[2020-01-16] MEDS ORDERED: MIDAZOLAM HCL 2 MG/2 ML SINGLE DOSE VIAL ONE (07:39)
[2020-01-16] MEDS ORDERED: ceFAZolin SODIUM 1 GM VIAL IVPB ONE (07:42)
[2020-01-16] MEDS ORDERED: BUPIVACAINE LIPOSOME/PF (EXPAREL) 266 MG/20 ML VIAL ONE (07:52)
[2020-01-16] MEDS ORDERED: SUCCINYLCHOLINE CHLORIDE 200 MG/10 ML SYRINGE ONE (08:43)
[2020-01-16] MEDS ORDERED: DEXAMETHASONE SOD PHOSPHATE 4 MG/1 ML VIAL ONE (09:14)
[2020-01-16] MEDS ORDERED: ONDANSETRON 4 MG/2 ML VIAL ONE ×2 (09:14→13:45)
[2020-01-16] MEDS ORDERED: hydrALAZINE HCL 20 MG/ML VIAL ONE (09:36)
[2020-01-16] MEDS ORDERED: METOPROLOL TARTRATE 5 MG/5 ML VIAL ONE (09:38)
[2020-01-16] MEDS ORDERED: CEFTRIAXONE 1 GM in DEXTROSE 5%-WATER - 50 ML IVPB SCH (10:00)
[2020-01-16] MEDS: FINASTERIDE 5 MG TABLET (FP) PO SCH (10:45)
[2020-01-16] MEDS: metoPROLOL SUCCINATE 25 MG TAB.SR.24H (FP) PO SCH (10:45)
[2020-01-16] MEDS: TAMSULOSIN HCL 0.4 MG CAP PO SCH (10:45)
--- NOTE | 2020-01-16 12:07 | PN ---
Progress Note (short form) - Note Progress Note: pt in OR
--- NOTE | 2020-01-16 12:33 | PN ---
Progress Note (short form) - Note Progress Note: pt in recovery room sedated Vitals stable Labs noted S1 S2 RRR Lungs clear Abd- soft, NT No edema Wayne+ PLAN exploratory lapatomy with sigmoid colon resection, take down of colovesical fistula - iv antibiotics keep NPO - iv fluids continue with meds SCD
[2020-01-16] MEDS ORDERED: HYDROmorphone HCl 2 MG/ML VIAL ONE (13:14)
[2020-01-16] MEDS ORDERED: NEOSTIGMINE METHYLSULFATE 0.5 MG/1 ML - 10 ML MDV ONE (13:35)
[2020-01-16] MEDS ORDERED: GLYCOPYRROLATE 0.2 MG/1 ML VIAL ONE (13:36)
[2020-01-16] MEDS ORDERED: ONDANSETRON 4 MG/2 ML VIAL IVPUSH PRN ×2 (13:53→14:38)
[2020-01-16] MEDS ORDERED: LACTATED RINGERS SOLUTION 1,000 ML IV SCH (14:00)
--- NOTE | 2020-01-16 14:27 | OP ---
Operative Note - Note: Operative Date: 01/16/20 Pre-Operative Diagnosis: colovesical fistula, sigmoid mass Operation: exploratory lapatomy with sigmoid colon resection, take down of colovesical fistula Findings: stool in urine with bruce catheter placement. Surgeon: Dennis Steele Peritoneal Dialysis Registered Nurse: Dee Encarnacion Anesthesiologist/[employer] MACHINE: Arnoldo Enriquez Anesthesia: General Specimens Removed: sigmoid colon Estimated Blood Loss (mls): 100 Fluid Volume Replaced (mls): 3,700 Operative Report Dictated: Yes
[2020-01-16] MEDS ORDERED: hydrALAZINE HCL 20 MG/ML VIAL IVPB PRN (14:38)
[2020-01-16] MEDS ORDERED: morphine SULFATE 4 MG/ML VIAL IVPUSH PRN (15:41)
[2020-01-16] MEDS: LACTATED RINGERS SOLUTION 1,000 ML IV SCH (16:20)
[2020-01-16] MEDS: HEPARIN NA (PORCINE) 5,000 UNITS/ML 1ML VIAL SQ SCH (21:18)
[2020-01-16] MEDS: ACETAMINOPHEN 1000 MG/100 ML VIAL (NON FORMULARY) IVPB SCH (21:19)
[2020-01-17] MEDS: LACTATED RINGERS SOLUTION 1,000 ML IV SCH ×2 (02:00→09:05)
[2020-01-17] MEDS: ACETAMINOPHEN 1000 MG/100 ML VIAL (NON FORMULARY) IVPB SCH ×2 (03:00→09:01)
[2020-01-17 07:56] LABS: BASO % 0.3 % (0-2.0); EOS % 0.1 % (0-4.5); HEMATOCRIT 35.8 % (35.4-49); HEMOGLOBIN 11.8 GM/dL (11.7-16.9); LYMPH % 10.4 % (8-40); MCH 25.1 pg (25.7-33.7); MEAN PLT VOLUME 8.4 fl (7.5-11.1); MONO % 6.4 % (3.8-10.2); NEUT % 82.8 % (42.8-82.8); PLATELET COUNT 250 K/MM3 (134-434); RBC 4.71 M/mm3 (4.00-5.60); RDW 16.2 % (11.9-15.9); WHITE BLOOD COUNT 9.6 K/mm3 (4.0-10.0)
[2020-01-17] MEDS ORDERED: ERTAPENEM SODIUM 1 GM in SODIUM CHLORIDE 50 ML IVPB ONE (08:01)
--- NOTE | 2020-01-17 08:05 | PN ---
Progress Note (short form) - Note Progress Note: Surgery note: Pt with some complaints of kendrick this am. No nausea or emesis. Vital Signs Period Temp Pulse Resp BP Sys/Mena Pulse Ox Last 24 Hr 97.9 F-98.4 F 58-89 14-18 109-151/48-70 99-100 Shah: concentrate but clear in tubing/decrease in amount of sediment JPX2 serosangrenous: RLE-90ml and LLE-275ml GEN: A&0x3 ABD: soft, slight distended, inc tendernes. Midline inc changed/fascia intact and no drainage noted. CBC, BMP 01/17/20 06:50 01/17/20 06:50 A/P: 79 yo male s/p sigmoid colon resection with colovesical fistula takedown, POD#1 Continue npo except for meds Enterig until passes flatus Local wound care with wet to dry daily, VNS ordered SHAH TO REMAIN UNTIL REMOVED BY SURGERY, pt had a colovesicula takedown IV invanz x1 today Jeremy to bulb suction IV tylenol/morphine as needed D/w Dr. Steele
[2020-01-17 08:21] LABS: BLOOD UREA NITROGEN 24.4 mg/dL (7-18); CALCIUM 7.7 mg/dL (8.5-10.1); CREATININE 0.8 mg/dL (0.55-1.3); POTASSIUM 4.7 mmol/L (3.5-5.1)
[2020-01-17] MEDS: FINASTERIDE 5 MG TABLET (FP) PO SCH (09:03)
[2020-01-17] MEDS: HEPARIN NA (PORCINE) 5,000 UNITS/ML 1ML VIAL SQ SCH ×2 (09:03→21:16)
[2020-01-17] MEDS: metoPROLOL SUCCINATE 25 MG TAB.SR.24H (FP) PO SCH (09:03)
[2020-01-17] MEDS: TAMSULOSIN HCL 0.4 MG CAP PO SCH (09:03)
[2020-01-17] MEDS: ALVIMOPAN 12 MG CAP PO SCH ×2 (09:04→21:18)
[2020-01-17] MEDS ORDERED: PT OWN MED DRAWER 7, Y5N ONE ×2 (09:04→20:53)
--- NOTE | 2020-01-17 09:46 | PN ---
Progress Note, Physician History of Present Illness: POD#1 exploratory lapatomy with sigmoid colon resection, take down of colovesical fistula - Current Medication List Current Medications: Active Medications Alvimopan (Entereg Capsule (Restricted) -) 12 mg PO BID [facility] Stop: 01/23/20 22:01 Last Admin: 01/17/20 09:04 Dose: 12 mg Documented by: Finasteride (Proscar -) 5 mg PO DAILY [facility] Last Admin: 01/17/20 09:03 Dose: 5 mg Documented by: Heparin Sodium (Porcine) (Heparin -) 5,000 unit SQ BID [facility] Last Admin: 01/17/20 09:03 Dose: 5,000 unit Documented by: Hydralazine HCl (Apresoline Injection -) 5 mg IVPB Q6H PRN PRN Reason: HYPERTENSION Lactated Ringer's (Lactated Ringers Solution) 1,000 mls @ 125 mls/hr IV ASDIR [facility] Last Admin: 01/17/20 09:05 Dose: 125 mls/hr Documented by: Metoprolol Succinate (Toprol Xl -) 25 mg PO DAILY [facility] Last Admin: 01/17/20 09:03 Dose: 25 mg Documented by: Morphine Sulfate (Morphine Sulfate) 4 mg IVPUSH Q4H PRN PRN Reason: PAIN LEVEL 6-10 Ondansetron HCl (Zofran Injection) 4 mg IVPUSH Q6H PRN PRN Reason: NAUSEA AND/OR VOMITING Stop: 01/17/20 13:52 Tamsulosin HCl (Flomax -) 0.4 mg PO DAILY@0830 [facility] Last Admin: 01/17/20 09:03 Dose: 0.4 mg Documented by: - Objective Vital Signs: Vital Signs Temperature 98.4 F 01/17/20 01:18 Pulse Rate 77 01/17/20 01:18 Respiratory Rate 18 01/17/20 01:18 Blood Pressure 109/70 01/17/20 01:18 O2 Sat by Pulse Oximetry (%) 100 01/17/20 01:18 Constitutional: Yes: No Distress, Calm, Thin Neck: Yes: Supple Cardiovascular: Yes: Regular Rate and Rhythm Respiratory: Yes: Regular, Diminished, On Nasal O2 Gastrointestinal: Yes: Soft, Hypoactive Bowel Sounds, Other (Post-op) Genitourinary: Yes: Bruce Present Edema: No Labs: CBC, BMP 01/17/20 06:50 01/17/20 06:50 INR, PTT INR 1.14 (0.83-1.09) H 01/14/20 20:00 Problem List - Problems (1) HTN (hypertension) Code(s): I10 - ESSENTIAL (PRIMARY) HYPERTENSION Qualifiers: Hypertension type: essential hypertension Qualified Code(s): I10 - Essential (primary) hypertension (2) Large bowel obstruction Code(s): K56.609 - UNSP INTESTNL OBST, UNSP TO PARTIAL VERSUS COMPLETE OBST (3) Right bundle branch block (RBBB) on electrocardiogram (ECG) Code(s): I45.10 - UNSPECIFIED RIGHT BUNDLE-BRANCH BLOCK (4) Colovesical fistula Code(s): N32.1 - VESICOINTESTINAL FISTULA Assessment/Plan 01/15/2020 echocardiogram: Normal LV and RV size and fxn, mild TR, AR 1. POD#1 exploratory lapatomy with sigmoid colon resection, take down of colovesical fistula for colovesical fistula, sigmoid mass stable CV perdue 2. HTN 3. Abnormal ECG - RBBB 4. BPH P:1. Continue Toprol XL 25 qd, IV hydralazine as needed 2. Continue npo except for meds, entereg until passes flatus, Local wound care with wet to dry daily, Jeremy to bulb suction, bruce per surgery 3. F/u CEA, empiric periop abx, DVT prophylaxis
--- NOTE | 2020-01-17 09:51 | SURG ---
Surgery Client Manager Large Law Note Client Manager Large Law: Dee Encarnacion PA-C Date of Service: 01/16/20 Diagnosis: colovesical fistula, sigmoid mass exploratory lapatomy with sigmoid colon resection, take down of colovesical fistula Procedure: exploratory lapatomy with sigmoid colon resection, take down of colovesical fistula I was present for the entirety of the operative procedure. For further detail, please refer to operative report. Visit type - Case Type Case Type: Scheduled - Emergency Emergency Visit: Yes ED Registration Date: 01/14/20 Care time: The patient presented to the Emergency Department on the above date and was hospitalized for further evaluation of their emergent condition. - New patient This patient is new to me today: Yes Date on this admission: 01/17/20
[2020-01-17] MEDS ORDERED: CEFTRIAXONE 1 GM in DEXTROSE 5%-WATER - 50 ML IVPB SCH (10:00)
--- NOTE | 2020-01-17 11:22 | PN ---
Progress Note (short form) - Note Progress Note: POD#1 exploratory lapatomy with sigmoid colon resection, take down of colovesical fistula No distress Vital Signs - 24 hr 01/16/20 01/16/20 01/16/20 14:00 14:15 14:30 Temperature 98.2 F Pulse Rate 63 60 58 L Respiratory 17 14 16 Rate Blood Pressure 145/58 L 151/58 L 126/48 L O2 Sat by Pulse 100 100 99 Oximetry (%) 01/16/20 01/16/20 01/16/20 14:45 15:00 15:15 Temperature Pulse Rate 60 58 L 64 Respiratory 14 14 14 Rate Blood Pressure 122/52 L 127/60 121/52 L O2 Sat by Pulse 99 100 100 Oximetry (%) 01/16/20 01/16/20 01/16/20 15:30 15:45 16:00 Temperature Pulse Rate 62 66 64 Respiratory 16 16 14 Rate Blood Pressure 121/56 L 123/53 L 117/54 L O2 Sat by Pulse 100 100 100 Oximetry (%) 01/16/20 01/16/20 01/16/20 16:20 17:09 21:00 Temperature 98.1 F 97.9 F Pulse Rate 64 69 Respiratory 14 18 18 Rate Blood Pressure 128/60 131/61 O2 Sat by Pulse 100 99 100 Oximetry (%) 01/16/20 01/17/20 01/17/20 22:00 01:18 10:00 Temperature 98.2 F 98.4 F 98.8 F Pulse Rate 89 77 67 Respiratory 18 18 18 Rate Blood Pressure 134/65 109/70 150/66 O2 Sat by Pulse 100 100 99 Oximetry (%) Current Medications Generic Name Dose Route Start Last Admin Trade Name Freq PRN Reason Stop Dose Admin Alvimopan 12 mg 01/17/20 10:00 01/17/20 09:04 Entereg Capsule (Restricted) - PO 01/23/20 22:01 12 mg BID KASSANDRA Administration Finasteride 5 mg 01/17/20 10:00 01/17/20 09:03 Proscar - PO 5 mg DAILY KASSANDRA Administration Heparin Sodium (Porcine) 5,000 unit 01/16/20 22:00 01/17/20 09:03 Heparin - SQ 5,000 unit BID KASSANDRA Administration Hydralazine HCl 5 mg 01/16/20 14:38 Apresoline Injection - IVPB Q6H PRN HYPERTENSION Lactated Ringer's 1,000 mls @ 125 mls/hr 01/16/20 14:38 01/17/20 09:05 Lactated Ringers Solution IV 125 mls/hr ASDIR KASSANDRA Administration Metoprolol Succinate 25 mg 01/17/20 10:00 01/17/20 09:03 Toprol Xl - PO 25 mg DAILY KASSANDRA Administration Morphine Sulfate 4 mg 01/16/20 15:41 Morphine Sulfate IVPUSH Q4H PRN PAIN LEVEL 6-10 Ondansetron HCl 4 mg 01/16/20 14:38 Zofran Injection IVPUSH 01/17/20 13:52 Q6H PRN NAUSEA AND/OR VOMITING Tamsulosin HCl 0.4 mg 01/17/20 08:30 01/17/20 09:03 Flomax - PO 0.4 mg DAILY@0830 KASSANDRA Administration Laboratory Results - last 24 hr 01/15/20 01/17/20 01/17/20 07:21 06:50 06:50 WBC 9.6 RBC 4.71 Hgb 11.8 Hct 35.8 D MCV 76.0 L MCH 25.1 L MCHC 33.0 RDW 16.2 H Plt Count 250 D MPV 8.4 Absolute Neuts (auto) 8.0 Neutrophils % 82.8 Lymphocytes % 10.4 D Monocytes % 6.4 Eosinophils % 0.1 Basophils % 0.3 Nucleated RBC % 0 Sodium 137 Potassium 4.7 Chloride 103 Carbon Dioxide 27 Anion Gap 7 L BUN 24.4 H Creatinine 0.8 Est GFR (CKD-EPI)AfAm 99.87 Est GFR (CKD-EPI)NonAf 86.17 Random Glucose 96 Calcium 7.7 L Carcinoembryonic Ag 7.1 H S1 S2 RRR Lungs clear Abd- soft, NT No edema Bruce+ PLAN exploratory laparotomy with sigmoid colon resection, take down of colovesical fistula - iv antibiotics keep NPO - iv fluids continue with meds SCD maintain bruce Problem List - Problems (1) HTN (hypertension) Code(s): I10 - ESSENTIAL (PRIMARY) HYPERTENSION Qualifiers: Hypertension type: essential hypertension Qualified Code(s): I10 - Essential (primary) hypertension (2) Large bowel obstruction Code(s): K56.609 - UNSP INTESTNL OBST, UNSP TO PARTIAL VERSUS COMPLETE OBST
--- NOTE | 2020-01-17 11:52 | PN ---
Progress Note (short form) - Note Progress Note: Anesthesia postop note 79 y/o M s/p GA for e lap/sigmoid resection POD#1, vss, aaox3, pain well controlled, no complaints. No anesthesia complications.
[2020-01-17] MEDS ORDERED: ACETAMINOPHEN 1000 MG/100 ML VIAL (NON FORMULARY) IVPB PRN (12:16)
[2020-01-18 07:33] LABS: BASO % 0.3 % (0-2.0); EOS % 0.8 % (0-4.5); HEMOGLOBIN 11.2 GM/dL (11.7-16.9); LYMPH % 7.6 % (8-40); MCH 24.2 pg (25.7-33.7); MCHC 32.1 g/dl (32.0-35.9); MEAN CELL VOLUME 75.6 fl (80-96); MEAN PLT VOLUME 8.3 fl (7.5-11.1); MONO % 5.8 % (3.8-10.2); NEUT % 85.5 % (42.8-82.8); PLATELET COUNT 266 K/MM3 (134-434); RBC 4.62 M/mm3 (4.00-5.60); RDW 16.7 % (11.9-15.9); WHITE BLOOD COUNT 10.1 K/mm3 (4.0-10.0)
[2020-01-18] MEDS: LACTATED RINGERS SOLUTION 1,000 ML IV SCH ×2 (07:56→15:03)
[2020-01-18 08:04] LABS: ALBUMIN 2.4 g/dl (3.4-5.0); BLOOD UREA NITROGEN 17.2 mg/dL (7-18); CALCIUM 8.2 mg/dL (8.5-10.1); CREATININE 0.5 mg/dL (0.55-1.3); POTASSIUM 4.2 mmol/L (3.5-5.1)
[2020-01-18 08:07] LABS: BILIRUBIN,TOTAL 0.9 mg/dL (0.2-1)
[2020-01-18 08:44] LABS: TOT PROT 4.9 g/dl (6.4-8.2)
--- NOTE | 2020-01-18 09:26 | PN ---
Progress Note (short form) - Note Progress Note: Surgery note: Pt with emesis(small amount) last pm. No nausea currently, he has sour taste in his mouth. He states that he passed flatus last pm. Vital Signs Period Temp Pulse Resp BP Sys/Mena Pulse Ox Last 24 Hr 98.2 F-98.9 F 67-76 16-18 149-163/65-81 96-99 Wayne: 950 yellow urine with few sediments JPX2 serosangrenous: RLE-60ml and LLE-150 ml GEN: A&0x3 ABD: soft, slight distended, inc tendernes. Midline inc changed/fascia intact and no drainage noted. CBC, BMP 01/18/20 06:50 01/18/20 06:50 A/P: 79 yo male s/p sigmoid colon resection with colovesical fistula takedown, POD#2 Continue npo except for meds Enterig until has BM Local wound care with wet to dry daily, VNS ordered WAYNE TO REMAIN UNTIL REMOVED BY SURGERY, pt had a colovesicula takedown Jeremy to bulb suction IV tylenol/morphine as needed D/w Dr. Steele
[2020-01-18] MEDS ORDERED: PT OWN MED DRAWER 7, Y5N ONE ×2 (09:33→21:00)
[2020-01-18] MEDS: HEPARIN NA (PORCINE) 5,000 UNITS/ML 1ML VIAL SQ SCH ×2 (09:34→21:12)
[2020-01-18] MEDS: PANTOPRAZOLE SODIUM 40 MG VIAL IVPUSH SCH (09:34)
[2020-01-18] MEDS: metoPROLOL SUCCINATE 25 MG TAB.SR.24H (FP) PO SCH (09:34)
[2020-01-18] MEDS: ALVIMOPAN 12 MG CAP PO SCH ×2 (09:35→21:12)
[2020-01-18] MEDS: TAMSULOSIN HCL 0.4 MG CAP PO SCH (09:35)
[2020-01-18] MEDS: FINASTERIDE 5 MG TABLET (FP) PO SCH (09:35)
--- NOTE | 2020-01-18 09:35 | PN ---
Progress Note, Physician History of Present Illness: POD#2 exploratory lapatomy with sigmoid colon resection, take down of colovesical fistula. Reports small amount of emesis yesterday, had BM, ambulating with PT assistance. - Current Medication List Current Medications: Active Medications Acetaminophen (Ofirmev Injection -) 1,000 mg IVPB Q6H PRN PRN Reason: PAIN 1-3 Stop: 01/18/20 12:16 Last Admin: 01/17/20 21:17 Dose: 1,000 mg Documented by: Alvimopan (Entereg Capsule (Restricted) -) 12 mg PO BID [facility] Stop: 01/23/20 22:01 Last Admin: 01/17/20 21:18 Dose: 12 mg Documented by: Finasteride (Proscar -) 5 mg PO DAILY [facility] Last Admin: 01/17/20 09:03 Dose: 5 mg Documented by: Heparin Sodium (Porcine) (Heparin -) 5,000 unit SQ BID [facility] Last Admin: 01/17/20 21:16 Dose: 5,000 unit Documented by: Hydralazine HCl (Apresoline Injection -) 5 mg IVPB Q6H PRN PRN Reason: HYPERTENSION Lactated Ringer's (Lactated Ringers Solution) 1,000 mls @ 125 mls/hr IV ASDIR [facility] Last Admin: 01/18/20 07:56 Dose: 125 mls/hr Documented by: Metoprolol Succinate (Toprol Xl -) 25 mg PO DAILY [facility] Last Admin: 01/17/20 09:03 Dose: 25 mg Documented by: Morphine Sulfate (Morphine Sulfate) 4 mg IVPUSH Q4H PRN PRN Reason: PAIN LEVEL 6-10 Last Admin: 01/18/20 07:55 Dose: 4 mg Documented by: Pantoprazole Sodium (Protonix Iv) 40 mg IVPUSH DAILY [facility] Tamsulosin HCl (Flomax -) 0.4 mg PO DAILY@0830 [facility] Last Admin: 01/17/20 09:03 Dose: 0.4 mg Documented by: - Objective Vital Signs: Vital Signs Temperature 98.7 F 01/18/20 05:00 Pulse Rate 76 01/18/20 05:00 Respiratory Rate 16 01/18/20 05:00 Blood Pressure 149/65 01/18/20 05:00 O2 Sat by Pulse Oximetry (%) 96 01/18/20 05:00 Constitutional: Yes: No Distress, Calm, Thin Neck: Yes: Supple Cardiovascular: Yes: Regular Rate and Rhythm Respiratory: Yes: Regular, CTA Bilaterally Gastrointestinal: Yes: Soft, Hypoactive Bowel Sounds, Other (Post-op) Genitourinary: Yes: Bruce Present Edema: No Labs: CBC, BMP 01/18/20 06:50 01/18/20 06:50 INR, PTT INR 1.14 (0.83-1.09) H 01/14/20 20:00 Problem List - Problems (1) HTN (hypertension) Code(s): I10 - ESSENTIAL (PRIMARY) HYPERTENSION Qualifiers: Hypertension type: essential hypertension Qualified Code(s): I10 - Essential (primary) hypertension (2) Large bowel obstruction Code(s): K56.609 - UNSP INTESTNL OBST, UNSP TO PARTIAL VERSUS COMPLETE OBST (3) Right bundle branch block (RBBB) on electrocardiogram (ECG) Code(s): I45.10 - UNSPECIFIED RIGHT BUNDLE-BRANCH BLOCK (4) Colovesical fistula Code(s): N32.1 - VESICOINTESTINAL FISTULA Assessment/Plan 01/15/2020 echocardiogram: Normal LV and RV size and fxn, mild TR, AR 1. POD#2 exploratory lapatomy with sigmoid colon resection, take down of colovesical fistula for colovesical fistula, sigmoid mass stable CV perdue 2. HTN 3. Abnormal ECG - RBBB 4. BPH P:1. Continue Toprol XL 25 qd, IV hydralazine as needed 2. Continue npo except for meds, entereg until passes flatus, Local wound care with wet to dry daily, Jeremy to bulb suction, bruce per surgery 3. Elevated CEA noted, f/u pathology, off empiric periop abx, DVT prophylaxis, early ambulation
--- NOTE | 2020-01-18 12:08 | PN ---
Progress Note (short form) - Note Progress Note: POD#2 exploratory lapatomy with sigmoid colon resection, take down of colovesical fistula No distress had a bm this morning Vital Signs - 24 hr 01/17/20 01/17/20 01/17/20 14:40 19:24 21:00 Temperature 98.2 F 98.9 F Pulse Rate 74 71 Respiratory 18 18 18 Rate Blood Pressure 158/69 163/81 O2 Sat by Pulse 97 Oximetry (%) 01/18/20 01/18/20 05:00 10:00 Temperature 98.7 F 98.0 F Pulse Rate 76 76 Respiratory 16 20 Rate Blood Pressure 149/65 156/78 O2 Sat by Pulse 96 96 Oximetry (%) Current Medications Generic Name Dose Route Start Last Admin Trade Name Freq PRN Reason Stop Dose Admin Acetaminophen 1,000 mg 01/17/20 12:16 01/17/20 21:17 Ofirmev Injection - IVPB 01/18/20 12:16 1,000 mg Q6H PRN Administration PAIN 1-3 Alvimopan 12 mg 01/17/20 10:00 01/18/20 09:35 Entereg Capsule (Restricted) - PO 01/23/20 22:01 12 mg BID KASSANDRA Administration Finasteride 5 mg 01/17/20 10:00 01/18/20 09:35 Proscar - PO 5 mg DAILY KASSANDRA Administration Heparin Sodium (Porcine) 5,000 unit 01/16/20 22:00 01/18/20 09:34 Heparin - SQ 5,000 unit BID KASSANDRA Administration Hydralazine HCl 5 mg 01/16/20 14:38 Apresoline Injection - IVPB Q6H PRN HYPERTENSION Lactated Ringer's 1,000 mls @ 125 mls/hr 01/16/20 14:38 01/18/20 07:56 Lactated Ringers Solution IV 125 mls/hr ASDIR KASSANDRA Administration Metoprolol Succinate 25 mg 01/17/20 10:00 01/18/20 09:34 Toprol Xl - PO 25 mg DAILY KASSANDRA Administration Morphine Sulfate 4 mg 01/16/20 15:41 01/18/20 07:55 Morphine Sulfate IVPUSH 4 mg Q4H PRN Administration PAIN LEVEL 6-10 Pantoprazole Sodium 40 mg 01/18/20 10:00 01/18/20 09:34 Protonix Iv IVPUSH 40 mg DAILY KASSANDRA Administration Tamsulosin HCl 0.4 mg 01/17/20 08:30 01/18/20 09:35 Flomax - PO 0.4 mg DAILY@0830 KASSANDRA Administration Laboratory Results - last 24 hr 01/14/20 01/18/20 01/18/20 20:00 06:50 06:50 WBC 10.1 H RBC 4.62 Hgb 11.2 L Hct 35.0 L MCV 75.6 L MCH 24.2 L MCHC 32.1 RDW 16.7 H Plt Count 266 MPV 8.3 Absolute Neuts (auto) 8.7 H Neutrophils % 85.5 H Lymphocytes % 7.6 L D Monocytes % 5.8 Eosinophils % 0.8 D Basophils % 0.3 Nucleated RBC % 0 Sodium 140 Potassium 4.2 Chloride 102 Carbon Dioxide 25 Anion Gap 13 BUN 17.2 Creatinine 0.5 L Est GFR (CKD-EPI)AfAm 121.15 Est GFR (CKD-EPI)NonAf 104.53 Random Glucose 89 Calcium 8.2 L Total Bilirubin 0.9 AST 17 ALT 11 L Alkaline Phosphatase 47 Total Protein 4.9 L Albumin 2.4 L Blood Type O POSITIVE Antibody Screen Negative Crossmatch See Detail S1 S2 RRR Lungs clear Abd- soft, NT No edema Bruce+ PLAN exploratory laparotomy with sigmoid colon resection, take down of colovesical fistula - OOB keep NPO - iv fluids continue with meds SCD maintain bruce Problem List - Problems (1) HTN (hypertension) Code(s): I10 - ESSENTIAL (PRIMARY) HYPERTENSION Qualifiers: Hypertension type: essential hypertension Qualified Code(s): I10 - Essential (primary) hypertension (2) Large bowel obstruction Code(s): K56.609 - UNSP INTESTNL OBST, UNSP TO PARTIAL VERSUS COMPLETE OBST
[2020-01-18] MEDS: ACETAMINOPHEN 1000 MG/100 ML VIAL (NON FORMULARY) IVPB PRN ×2 (15:29→21:35)
[2020-01-18] MEDS ORDERED: LORazepam 2 MG/ML SDV VIAL IVPUSH ONE (22:59)
--- NOTE | 2020-01-18 23:04 | HOSP ---
Subjective - Review of Symptoms Events since last encounter: Hospitalist Encounter Notified by the primary RN that the patient is confused pulling on J tube/IV, trying to get OOB, was asked to assess. Arrived to bedside, patient is alert, awake, oriented to name, , president - he did not know the month, year or place. Attempted to reorient patient and provide reassurance. Patient has no complaints. Patient examined at bedside- see EMR Plan: Ativan IV now B/L Wrist restraints Neurochecks Neurological: Yes: Confusion Physical Examination Vital Signs: Vital Signs Temperature 99.3 F 01/18/20 14:42 Pulse Rate 83 01/18/20 14:42 Respiratory Rate 20 01/18/20 14:42 Blood Pressure 153/73 01/18/20 14:42 O2 Sat by Pulse Oximetry (%) 96 01/18/20 10:00 Constitutional: Yes: Anxious, Thin, Other (confused) Eyes: Yes: Conjunctiva Clear, EOM Intact, PERRL HENT: Yes: Atraumatic, Normocephalic Neck: Yes: Supple, Trachea Midline Cardiovascular: Yes: Regular Rate and Rhythm, S1, S2 Respiratory: Yes: Regular, CTA Bilaterally Gastrointestinal: Yes: Hypoactive Bowel Sounds, Other (Surgical Dressing to mid abdomen c/d/i ANALI drain with seroussanganieous drainage) Edema: No Peripheral Pulses WNL: Yes Wound/Incision: Yes: Dressing Dry and Intact Neurological: Yes: Alert, Confusion, Cran Nerves II-XII Intact ...Motor Strength: WNL Psychiatric: Yes: Alert Labs: CBC, BMP 01/18/20 06:50 01/18/20 06:50 Laboratory Results - last 24 hr 01/14/20 01/18/20 01/18/20 20:00 06:50 06:50 WBC 10.1 H RBC 4.62 Hgb 11.2 L Hct 35.0 L MCV 75.6 L MCH 24.2 L MCHC 32.1 RDW 16.7 H Plt Count 266 MPV 8.3 Absolute Neuts (auto) 8.7 H Neutrophils % 85.5 H Lymphocytes % 7.6 L D Monocytes % 5.8 Eosinophils % 0.8 D Basophils % 0.3 Nucleated RBC % 0 Sodium 140 Potassium 4.2 Chloride 102 Carbon Dioxide 25 Anion Gap 13 BUN 17.2 Creatinine 0.5 L Est GFR (CKD-EPI)AfAm 121.15 Est GFR (CKD-EPI)NonAf 104.53 Random Glucose 89 Calcium 8.2 L Total Bilirubin 0.9 AST 17 ALT 11 L Alkaline Phosphatase 47 Total Protein 4.9 L Albumin 2.4 L Crossmatch See Detail Current Medications Generic Name Dose Route Start Last Admin Trade Name Freq PRN Reason Stop Dose Admin Acetaminophen 1,000 mg 01/18/20 15:15 01/18/20 15:29 Ofirmev Injection - IVPB 01/19/20 15:14 1,000 mg Q6H PRN Administration PAIN LEVEL 4 - 6 Alvimopan 12 mg 01/17/20 10:00 01/18/20 21:12 Entereg Capsule (Restricted) - PO 01/23/20 22:01 12 mg BID KASSANDRA Administration Finasteride 5 mg 01/17/20 10:00 01/18/20 09:35 Proscar - PO 5 mg DAILY KASSANDRA Administration Heparin Sodium (Porcine) 5,000 unit 01/16/20 22:00 01/18/20 21:12 Heparin - SQ 5,000 unit BID KASSANDRA Administration Hydralazine HCl 5 mg 01/16/20 14:38 Apresoline Injection - IVPB Q6H PRN HYPERTENSION Lactated Ringer's 1,000 mls @ 125 mls/hr 01/16/20 14:38 01/18/20 15:03 Lactated Ringers Solution IV 125 mls/hr ASDIR KASSANDRA Administration Metoprolol Succinate 25 mg 01/17/20 10:00 01/18/20 09:34 Toprol Xl - PO 25 mg DAILY KASSANDRA Administration Pantoprazole Sodium 40 mg 01/18/20 10:00 01/18/20 09:34 Protonix Iv IVPUSH 40 mg DAILY KASSANDRA Administration Tamsulosin HCl 0.4 mg 01/17/20 08:30 01/18/20 09:35 Flomax - PO 0.4 mg DAILY@0830 KASSANDRA Administration Hospitalist Encounter Assessment: This is a 79 y/o male with PMHx of BPH, HTN, Hematuria (in October, being evaluated by Urology outpatient), 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 Admitted for Large Bowel Obstruction.
[2020-01-19] MEDS: LACTATED RINGERS SOLUTION 1,000 ML IV SCH ×3 (00:14→17:45)
--- NOTE | 2020-01-19 08:43 | PN ---
Progress Note, Physician History of Present Illness: POD#3 exploratory lapatomy with sigmoid colon resection, take down of colovesical fistula. Had BM, ambulating with PT assistance. Episode of transient confusion overnight since resolved after reorientation. - Current Medication List Current Medications: Active Medications Acetaminophen (Ofirmev Injection -) 1,000 mg IVPB Q6H PRN PRN Reason: PAIN LEVEL 4 - 6 Stop: 01/19/20 15:14 Last Admin: 01/18/20 21:35 Dose: 1,000 mg Documented by: Alvimopan (Entereg Capsule (Restricted) -) 12 mg PO BID [facility] Stop: 01/23/20 22:01 Last Admin: 01/18/20 21:12 Dose: 12 mg Documented by: Finasteride (Proscar -) 5 mg PO DAILY [facility] Last Admin: 01/18/20 09:35 Dose: 5 mg Documented by: Heparin Sodium (Porcine) (Heparin -) 5,000 unit SQ BID [facility] Last Admin: 01/18/20 21:12 Dose: 5,000 unit Documented by: Hydralazine HCl (Apresoline Injection -) 5 mg IVPB Q6H PRN PRN Reason: HYPERTENSION Lactated Ringer's (Lactated Ringers Solution) 1,000 mls @ 125 mls/hr IV ASDIR [facility] Last Admin: 01/19/20 06:22 Dose: 125 mls/hr Documented by: Metoprolol Succinate (Toprol Xl -) 25 mg PO DAILY [facility] Last Admin: 01/18/20 09:34 Dose: 25 mg Documented by: Pantoprazole Sodium (Protonix Iv) 40 mg IVPUSH DAILY [facility] Last Admin: 01/18/20 09:34 Dose: 40 mg Documented by: Tamsulosin HCl (Flomax -) 0.4 mg PO DAILY@0830 [facility] Last Admin: 01/18/20 09:35 Dose: 0.4 mg Documented by: - Objective Vital Signs: Vital Signs Temperature 98.8 F 01/19/20 05:00 Pulse Rate 97 H 01/19/20 05:00 Respiratory Rate 16 01/19/20 05:00 Blood Pressure 161/76 01/19/20 05:00 O2 Sat by Pulse Oximetry (%) 96 01/19/20 05:00 Constitutional: Yes: No Distress, Calm, Thin Neck: Yes: Supple Cardiovascular: Yes: Regular Rate and Rhythm Respiratory: Yes: Regular, Diminished Gastrointestinal: Yes: Soft, Hypoactive Bowel Sounds, Other (Post-op) Edema: No Labs: CBC, BMP 01/18/20 06:50 01/18/20 06:50 INR, PTT INR 1.14 (0.83-1.09) H 01/14/20 20:00 Problem List - Problems (1) HTN (hypertension) Code(s): I10 - ESSENTIAL (PRIMARY) HYPERTENSION Qualifiers: Hypertension type: essential hypertension Qualified Code(s): I10 - Essential (primary) hypertension (2) Large bowel obstruction Code(s): K56.609 - UNSP INTESTNL OBST, UNSP TO PARTIAL VERSUS COMPLETE OBST (3) Right bundle branch block (RBBB) on electrocardiogram (ECG) Code(s): I45.10 - UNSPECIFIED RIGHT BUNDLE-BRANCH BLOCK (4) Colovesical fistula Code(s): N32.1 - VESICOINTESTINAL FISTULA Assessment/Plan 01/15/2020 echocardiogram: Normal LV and RV size and fxn, mild TR, AR 1. POD#3 exploratory lapatomy with sigmoid colon resection, take down of colovesical fistula for colovesical fistula, sigmoid mass stable CV perdue 2. HTN 3. Abnormal ECG - RBBB 4. BPH P:1. Continue Toprol XL 25 qd, IV hydralazine as needed 2. Continue npo except for meds, entereg until passes flatus, Local wound care with wet to dry daily, Jeremy to bulb suction, bruce per surgery 3. Elevated CEA noted, f/u pathology, off empiric periop abx, DVT prophylaxis, early ambulation
--- NOTE | 2020-01-19 09:23 | PN ---
Progress Note (short form) - Note Progress Note: Surgery note: POD # 3 sigmoid resection with colovesicula take down seen and examined on AM rounds. Pt was in restraints last night 2/2 confusion but per nursing has been calm with no issues overnight. He is still having pain but it is controlled and he states he is passing flatus. He denies any CP, SOB, N/V/D fever or chills. Vital Signs Temp 98.8 F 01/19/20 05:00 Pulse 97 H 01/19/20 05:00 Resp 16 01/19/20 05:00 BP 161/76 01/19/20 05:00 Pulse Ox 96 01/19/20 05:00 Intake & Output 01/18/20 01/18/20 01/19/20 11:59 23:59 11:59 Intake Total 1500 1500 1500 Output Total 350 1295 450 Balance 5159 331 9426 Weight 170 lb Intake: IV 1500 1450 1500 Lactated Ringers Solution 1500 1450 1500 1,000 ml @ 125 mls/hr IV ASDIR KASSANDRA Rx#: [id number] IVPB 50 Output: Drainage 50 95 150 Left Abdomen 20 60 40 Right Abdomen 30 35 110 Urine 300 1200 300 Shah 300 1200 300 Other: Voiding Method Indwelling Catheter Indwelling Catheter Indwelling Catheter Height 6 ft Body Mass Index (BMI) 23.0 Shah: 1200/24hrs clear yellow urine with few sediments JPX2 serosangrenous: Right 35ml and Left-60 ml GEN: A&0x3,NAD, Flat affect ABD: soft, slight distended, inc tendernes. Midline inc changed/fascia intact and no drainage noted so tracking erythema, mariella in situ, no foul odor B/L LE compartments soft, NT, ND with + DP pulses. CBC, BMP 01/18/20 06:50 01/18/20 06:50 Problem List - Problems (1) Colovesical fistula Assessment/Plan: POD #3 stable and comfortable. A/P: 79 yo male s/p sigmoid colon resection with colovesical fistula takedown, POD#3 Continue npo except for meds Enterig until has BM Local wound care with wet to dry daily, VNS ordered SHAH TO REMAIN UNTIL REMOVED BY SURGERY, pt had a colovesicula takedown Jeremy to bulb suction IV tylenol/morphine as needed D/w Dr. Steele Code(s): N32.1 - VESICOINTESTINAL FISTULA (2) Large bowel obstruction Code(s): K56.609 - UNSP INTESTNL OBST, UNSP TO PARTIAL VERSUS COMPLETE OBST
[2020-01-19] MEDS: FINASTERIDE 5 MG TABLET (FP) PO SCH (09:47)
[2020-01-19] MEDS: PANTOPRAZOLE SODIUM 40 MG VIAL IVPUSH SCH (09:47)
[2020-01-19] MEDS: metoPROLOL SUCCINATE 25 MG TAB.SR.24H (FP) PO SCH (09:47)
[2020-01-19] MEDS: HEPARIN NA (PORCINE) 5,000 UNITS/ML 1ML VIAL SQ SCH ×2 (09:47→21:16)
[2020-01-19] MEDS: TAMSULOSIN HCL 0.4 MG CAP PO SCH (09:48)
[2020-01-19] MEDS: ACETAMINOPHEN 1000 MG/100 ML VIAL (NON FORMULARY) IVPB PRN (09:48)
[2020-01-19] MEDS: ALVIMOPAN 12 MG CAP PO SCH ×2 (11:53→21:16)
--- NOTE | 2020-01-19 12:00 | PN ---
Progress Note, Physician History of Present Illness: Pt seen/ examined today chart is reviewed awake/ comfortable somewhat confused No distress Denies pain all the follow-ups noted - Current Medication List Current Medications: Active Medications Acetaminophen (Ofirmev Injection -) 1,000 mg IVPB Q6H PRN PRN Reason: PAIN LEVEL 4 - 6 Stop: 01/19/20 15:14 Last Admin: 01/19/20 09:48 Dose: 1,000 mg Documented by: Alvimopan (Entereg Capsule (Restricted) -) 12 mg PO BID [facility] Stop: 01/23/20 22:01 Last Admin: 01/19/20 11:53 Dose: 12 mg Documented by: Finasteride (Proscar -) 5 mg PO DAILY [facility] Last Admin: 01/19/20 09:47 Dose: 5 mg Documented by: Heparin Sodium (Porcine) (Heparin -) 5,000 unit SQ BID [facility] Last Admin: 01/19/20 09:47 Dose: 5,000 unit Documented by: Hydralazine HCl (Apresoline Injection -) 5 mg IVPB Q6H PRN PRN Reason: HYPERTENSION Lactated Ringer's (Lactated Ringers Solution) 1,000 mls @ 125 mls/hr IV ASDIR [facility] Last Admin: 01/19/20 06:22 Dose: 125 mls/hr Documented by: Metoprolol Succinate (Toprol Xl -) 25 mg PO DAILY [facility] Last Admin: 01/19/20 09:47 Dose: 25 mg Documented by: Pantoprazole Sodium (Protonix Iv) 40 mg IVPUSH DAILY [facility] Last Admin: 01/19/20 09:47 Dose: 40 mg Documented by: Tamsulosin HCl (Flomax -) 0.4 mg PO DAILY@0830 [facility] Last Admin: 01/19/20 09:48 Dose: 0.4 mg Documented by: - Objective Vital Signs: Vital Signs Temperature 98.9 F 01/19/20 10:00 Pulse Rate 100 H 01/19/20 10:00 Respiratory Rate 17 01/19/20 10:00 Blood Pressure 148/68 01/19/20 10:00 O2 Sat by Pulse Oximetry (%) 96 01/19/20 10:00 Constitutional: Yes: No Distress Neck: Yes: Supple Cardiovascular: Yes: Regular Rate and Rhythm Respiratory: Yes: Diminished Gastrointestinal: Yes: Soft Genitourinary: Yes: Bruce Present Edema: No Labs: CBC, BMP 01/18/20 06:50 01/18/20 06:50 INR, PTT INR 1.14 (0.83-1.09) H 01/14/20 20:00 Problem List - Problems (1) UTI (urinary tract infection) Code(s): N39.0 - URINARY TRACT INFECTION, SITE NOT SPECIFIED (2) HTN (hypertension) Code(s): I10 - ESSENTIAL (PRIMARY) HYPERTENSION Qualifiers: Hypertension type: essential hypertension Qualified Code(s): I10 - Essential (primary) hypertension (3) Large bowel obstruction Code(s): K56.609 - UNSP INTESTNL OBST, UNSP TO PARTIAL VERSUS COMPLETE OBST (4) Right bundle branch block (RBBB) on electrocardiogram (ECG) Code(s): I45.10 - UNSPECIFIED RIGHT BUNDLE-BRANCH BLOCK Assessment/Plan Discussed with RN continue present care surgery following . will order labs today check ammonia level keep bruce Fall precautions Will follow
[2020-01-19 14:06] LABS: BASO % 0.2 % (0-2.0); HEMATOCRIT 37.2 % (35.4-49); HEMOGLOBIN 12.1 GM/dL (11.7-16.9); LYMPH % 4.5 % (8-40); MCH 24.5 pg (25.7-33.7); MCHC 32.4 g/dl (32.0-35.9); MEAN CELL VOLUME 75.4 fl (80-96); MEAN PLT VOLUME 8.3 fl (7.5-11.1); MONO % 4.8 % (3.8-10.2); NEUT % 90.5 % (42.8-82.8); PLATELET COUNT 266 K/MM3 (134-434); RBC 4.93 M/mm3 (4.00-5.60); RDW 16.6 % (11.9-15.9); WHITE BLOOD COUNT 13.5 K/mm3 (4.0-10.0)
[2020-01-19 14:44] LABS: POTASSIUM 3.8 mmol/L (3.5-5.1)
[2020-01-19 15:16] LABS: ALBUMIN 2.1 g/dl (3.4-5.0); BILIRUBIN,TOTAL 0.8 mg/dL (0.2-1); BLOOD UREA NITROGEN 12.5 mg/dL (7-18); CREATININE 0.5 mg/dL (0.55-1.3); TOT PROT 4.5 g/dl (6.4-8.2)
[2020-01-20] MEDS: ACETAMINOPHEN 1000 MG/100 ML VIAL (NON FORMULARY) IVPB PRN ×3 (01:01→16:48)
[2020-01-20] MEDS ORDERED: PT OWN MED DRAWER 7, Y5N ONE (09:14)
[2020-01-20] MEDS ORDERED: AMINO ACIDS 4.25%/D5W 1,000 ML IV SCH (09:15)
--- NOTE | 2020-01-20 09:22 | PN ---
Progress Note (short form) - Note Progress Note: POD#4 exploratory lapatomy with sigmoid colon resection, take down of colovesical fistula No distress having bm,. passing flatus Vital Signs - 24 hr 01/19/20 01/19/20 01/19/20 10:00 15:43 16:50 Temperature 98.9 F 98.8 F 99.8 F H Pulse Rate 100 H 64 98 H Respiratory 17 18 18 Rate Blood Pressure 148/68 123/65 135/69 O2 Sat by Pulse 96 98 95 Oximetry (%) 01/19/20 01/19/20 01/20/20 21:00 22:00 06:30 Temperature 97.5 F L 97.6 F Pulse Rate 89 89 Respiratory 18 18 Rate Blood Pressure 139/69 145/72 O2 Sat by Pulse 97 97 97 Oximetry (%) 01/20/20 09:05 Temperature 98.2 F Pulse Rate 91 H Respiratory 20 Rate Blood Pressure 141/69 O2 Sat by Pulse 98 Oximetry (%) Current Medications Generic Name Dose Route Start Last Admin Trade Name Freq PRN Reason Stop Dose Admin Acetaminophen 1,000 mg 01/20/20 00:22 01/20/20 01:01 Ofirmev Injection - IVPB 01/21/20 00:22 1,000 mg Q6H PRN Administration PAIN LEVEL 6-10 Alvimopan 12 mg 01/17/20 10:00 01/19/20 21:16 Entereg Capsule (Restricted) - PO 01/23/20 22:01 12 mg BID KASSANDRA Administration Finasteride 5 mg 01/17/20 10:00 01/19/20 09:47 Proscar - PO 5 mg DAILY KASSANDRA Administration Heparin Sodium (Porcine) 5,000 unit 01/16/20 22:00 01/19/20 21:16 Heparin - SQ 5,000 unit BID KASSANDRA Administration Hydralazine HCl 5 mg 01/16/20 14:38 Apresoline Injection - IVPB Q6H PRN HYPERTENSION Amino Acids 1,000 mls @ 84 mls/hr 01/20/20 09:15 Clinimix - IV Q12H KASSANDRA Metoprolol Succinate 25 mg 01/17/20 10:00 01/19/20 09:47 Toprol Xl - PO 25 mg DAILY KASSANDRA Administration Pantoprazole Sodium 40 mg 01/18/20 10:00 08/21/20 09:47 Protonix Iv IVPUSH 40 mg DAILY KASSANDRA Administration Tamsulosin HCl 0.4 mg 01/17/20 08:30 01/19/20 09:48 Flomax - PO 0.4 mg DAILY@0830 KASSANDRA Administration Laboratory Results - last 24 hr 01/19/20 01/19/20 01/19/20 13:40 13:40 13:40 WBC 13.5 H RBC 4.93 Hgb 12.1 Hct 37.2 MCV 75.4 L MCH 24.5 L MCHC 32.4 RDW 16.6 H Plt Count 266 MPV 8.3 Absolute Neuts (auto) 12.2 H Neutrophils % 90.5 H Lymphocytes % 4.5 L D Monocytes % 4.8 Eosinophils % 0.0 D Basophils % 0.2 Nucleated RBC % 0 Sodium 139 Potassium 3.8 Chloride 103 Carbon Dioxide 25 Anion Gap 11 BUN 12.5 Creatinine 0.5 L Est GFR (CKD-EPI)AfAm 121.15 Est GFR (CKD-EPI)NonAf 104.53 Random Glucose 98 Calcium 8.0 L Total Bilirubin 0.8 AST 14 L ALT 12 L Alkaline Phosphatase 39 L Ammonia 21.90 Total Protein 4.5 L Albumin 2.1 L S1 S2 RRR Lungs clear Abd- soft, NT No edema Rbuce+ PLAN exploratory laparotomy with sigmoid colon resection, take down of colovesical fistula - OOB recommend clear liquids if ok with surgery start clinimix - iv fluids dc continue with meds SCD maintain bruce Problem List - Problems (1) HTN (hypertension) Code(s): I10 - ESSENTIAL (PRIMARY) HYPERTENSION Qualifiers: Hypertension type: essential hypertension Qualified Code(s): I10 - Essential (primary) hypertension (2) Large bowel obstruction Code(s): K56.609 - UNSP INTESTNL OBST, UNSP TO PARTIAL VERSUS COMPLETE OBST
[2020-01-20] MEDS: PANTOPRAZOLE SODIUM 40 MG VIAL IVPUSH SCH (09:25)
[2020-01-20] MEDS: HEPARIN NA (PORCINE) 5,000 UNITS/ML 1ML VIAL SQ SCH ×2 (09:25→22:49)
[2020-01-20] MEDS: TAMSULOSIN HCL 0.4 MG CAP PO SCH (09:25)
[2020-01-20] MEDS: metoPROLOL SUCCINATE 25 MG TAB.SR.24H (FP) PO SCH (09:25)
[2020-01-20] MEDS: FINASTERIDE 5 MG TABLET (FP) PO SCH (09:25)
[2020-01-20] MEDS: ALVIMOPAN 12 MG CAP PO SCH (09:25)
--- NOTE | 2020-01-20 10:25 | PN ---
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 d/w the patients son Jossue. Dennis Steele MD FACS
--- NOTE | 2020-01-20 12:09 | PN ---
Progress Note, Physician History of Present Illness: POD#4 exploratory lapatomy with sigmoid colon resection, take down of colovesical fistula. Had BM, no further episodes of transient confusion. - Current Medication List Current Medications: Active Medications Acetaminophen (Ofirmev Injection -) 1,000 mg IVPB Q6H PRN PRN Reason: PAIN LEVEL 6-10 Stop: 01/21/20 00:22 Last Admin: 01/20/20 09:28 Dose: 1,000 mg Documented by: Finasteride (Proscar -) 5 mg PO DAILY [facility] Last Admin: 01/20/20 09:25 Dose: 5 mg Documented by: Heparin Sodium (Porcine) (Heparin -) 5,000 unit SQ BID [facility] Last Admin: 01/20/20 09:25 Dose: 5,000 unit Documented by: Hydralazine HCl (Apresoline Injection -) 5 mg IVPB Q6H PRN PRN Reason: HYPERTENSION Amino Acids (Clinimix -) 1,000 mls @ 84 mls/hr IV Q12H [facility] Metoprolol Succinate (Toprol Xl -) 25 mg PO DAILY [facility] Last Admin: 01/20/20 09:25 Dose: 25 mg Documented by: Pantoprazole Sodium (Protonix Iv) 40 mg IVPUSH DAILY [facility] Last Admin: 01/20/20 09:25 Dose: 40 mg Documented by: Tamsulosin HCl (Flomax -) 0.4 mg PO DAILY@0830 [facility] Last Admin: 01/20/20 09:25 Dose: 0.4 mg Documented by: - Objective Vital Signs: Vital Signs Temperature 98.2 F 01/20/20 09:05 Pulse Rate 91 H 01/20/20 09:05 Respiratory Rate 20 01/20/20 09:05 Blood Pressure 141/69 01/20/20 09:05 O2 Sat by Pulse Oximetry (%) 98 01/20/20 09:05 Constitutional: Yes: No Distress, Calm, Thin Neck: Yes: Supple Cardiovascular: Yes: Regular Rate and Rhythm Respiratory: Yes: Regular, CTA Bilaterally Gastrointestinal: Yes: Soft, Hypoactive Bowel Sounds, Other (Post-op) Genitourinary: Yes: Bruce Present Edema: No Labs: CBC, BMP 01/19/20 13:40 01/19/20 13:40 INR, PTT INR 1.14 (0.83-1.09) H 01/14/20 20:00 Problem List - Problems (1) HTN (hypertension) Code(s): I10 - ESSENTIAL (PRIMARY) HYPERTENSION Qualifiers: Hypertension type: essential hypertension Qualified Code(s): I10 - Essential (primary) hypertension (2) Large bowel obstruction Code(s): K56.609 - UNSP INTESTNL OBST, UNSP TO PARTIAL VERSUS COMPLETE OBST (3) Right bundle branch block (RBBB) on electrocardiogram (ECG) Code(s): I45.10 - UNSPECIFIED RIGHT BUNDLE-BRANCH BLOCK (4) Colovesical fistula Code(s): N32.1 - VESICOINTESTINAL FISTULA Assessment/Plan 01/15/2020 echocardiogram: Normal LV and RV size and fxn, mild TR, AR Path;preliminary report T4 adenocarcinoma pending final staging 1. POD#4 exploratory lapatomy with sigmoid colon resection, take down of colovesical fistula for colovesical fistula, sigmoid mass stable CV perdue 2. HTN 3. Abnormal ECG - RBBB 4. BPH P:1. Continue Toprol XL 25 qd, IV hydralazine as needed 2. Clear liquid diet persurgery, Local wound care with wet to dry daily, Jeremy to bulb suction, bruce per surgery 3. Elevated CEA noted, f/u formal pathology, DVT prophylaxis, early ambulation
[2020-01-20 20:26] LABS: EOS % 0.1 % (0-4.5); HEMATOCRIT 49.1 % (35.4-49); HEMOGLOBIN 15.7 GM/dL (11.7-16.9); LYMPH % 8.3 % (8-40); MCH 24.5 pg (25.7-33.7); MEAN CELL VOLUME 76.4 fl (80-96); MEAN PLT VOLUME 8.6 fl (7.5-11.1); MONO % 8.9 % (3.8-10.2); NEUT % 82.7 % (42.8-82.8); RBC 6.42 M/mm3 (4.00-5.60); RDW 17.7 % (11.9-15.9)
[2020-01-20] MEDS ORDERED: LACTATED RINGERS SOLUTION 1000 ML INFUS.BAG IV ONE (20:34)
[2020-01-20 20:45] LABS: ALBUMIN 1.9 g/dl (3.4-5.0); BILIRUBIN,TOTAL 0.9 mg/dL (0.2-1); BLOOD UREA NITROGEN 32.5 mg/dL (7-18); CALCIUM 8.6 mg/dL (8.5-10.1); POTASSIUM 3.6 mmol/L (3.5-5.1); TOT PROT 4.6 g/dl (6.4-8.2)
[2020-01-20] MEDS ORDERED: PIPERACILLIN/TAZOB 2.25 GM 2.25 GM in DEXTROSE 5%-WATER - 50 ML IVPB SCH (20:45)
[2020-01-20] MEDS ORDERED: PIPERACILLIN/TAZOBACTAM 2.25 GM VIAL IVPB ONE (20:48)
[2020-01-20] MEDS ORDERED: DEXTROSE 5%-WATER - 50 ML IVPB ONE (20:48)
--- NOTE | 2020-01-20 20:59 | RAPID ---
<Nick Mccabe - Last Filed: 01/20/20 20:55> Physical Examination Vital Signs: Vital Signs Temperature 97.5 F L 01/20/20 18:28 Pulse Rate 71 01/20/20 18:28 Respiratory Rate 24 H 01/20/20 18:28 Blood Pressure 123/73 01/20/20 18:28 O2 Sat by Pulse Oximetry (%) 97 01/20/20 18:28 Cardiovascular: Yes: Regular Rate and Rhythm Respiratory: Yes: CTA Bilaterally, Accessory Muscle Use, Tachypnea Gastrointestinal: Yes: Other (tenderness to palpation of left abdomen. ANALI tube and Wayne.) Labs: CBC, BMP 01/20/20 20:10 01/20/20 20:10 Rapid Response - Rapid Response Assessment: Rapid response called 7:23. On arrival, patient was found disoriented and sweating. Vitals: 98.6F, 187/49, 74bpm, 35 breaths per minute, 186 blood glucose, 98% on NC. Patient had the peritoneal sign of tenderness to left abdominal palpation. CXR, ECG, lactic acid, CBC, CMP, blood cultures ordered. <Kath Washington - Last Filed: 02/06/20 20:54> Physical Examination Vital Signs: Labs: CBC, BMP 01/20/20 20:10 01/20/20 20:10 Critical Care Total Critical Care Time (in minutes): 30 Critical Care Statement: The care of this patient involved high complexity decision making to prevent further life threatening deterioration of the patient's condition and/or to evaluate & treat vital organ system(s) failure or risk of failure.
[2020-01-20] MEDS ORDERED: SODIUM CHLORIDE 500 ML IV STA (21:08)
[2020-01-20] MEDS ORDERED: VANCOMYCIN 1 GM in D5W (PRE-DOCKED) 1,000 MG/250 ML IVPB SCH (21:15)
--- NOTE | 2020-01-20 21:54 | PN ---
Progress Note (short form) - Note Progress Note: Attending Surgeon CTSP for low BP/clammy/cold; seen earlier today and doing well and was started on clear liquids after witnessed BM and passage of flatus; a/y his son he tolerated the liquids w/o nausea and /or vomiting. Afebile abdo-softly distended and tender; incision c/d/i; ANALI drains remain serous and non feculent smelling. extrems-no calf tenderness WBC-nl; lactate 8.0 UO has fallen off and urine concentrated and BUN/Creatinne elevated and patient hemoconcentrated. CXR-nl IMP: dehydration; ? anastomotic leak/intraabdominal sepsis PLAN: Will fluid resuscitate and repeat lactate; d/w the patients son Jossue @ 9:50 PM. Patient was also seen by TRANSFORMATION COACH Pankaj Pedro who is aware patient may need xfer to the ICU. Dennis Steele MD FACS
[2020-01-20 22:11] LABS: PLATELET ESTIMATE INCREASED
[2020-01-20 22:19] LABS: PLATELET COUNT 525 K/MM3 (134-434)
[2020-01-20] MEDS ORDERED: SODIUM CHLORIDE 1,000 ML IV SCH (22:30)
--- NOTE | 2020-01-21 00:51 | CONSULT ---
Consult Consult Specialty:: Pulm/CCM Referred by:: Dr Steele Reason for Consultation:: lactic acidosis - History of Present Illness Chief Complaint: short of breath History of Present Illness: Briefly this is a 79 y/o man POD #4 after sigmoid mass with resection and repair of enterovesicular fistula who today became increasing short of breath, with increased abdominal pain and distention. Seen by his Surgeon Dr Steele. Found to have severe lactic acidosis. Started on broad spectrum abx and given approximately 2L of fluid. Pt continued to deteriorate. Brought to ICU for further care and stabilization before possible return to OR - History Source History Provided By: Medical Record Limitations to Obtaining History: Clinical Condition - Past Surgical History Additional Surgical History: See Operative note on this admission - Alcohol/Substance Use Hx Alcohol Use: Yes (WINE) - Smoking History Smoking history: Never smoked Home Medications - Allergies Allergies/Adverse Reactions: Allergies Allergy/AdvReac Type Severity Reaction Status Date / Time No Known Allergies Allergy Verified 01/14/20 11:15 - Home Medications Home Medications: Ambulatory Orders Finasteride [Proscar -] 5 mg PO DAILY 11/12/19 Cephalexin [Keflex] 500 mg PO TID 01/14/20 Phenazopyridine HCl [Pyridium] 100 mg PO TID 01/14/20 Tamsulosin HCl [Flomax] 0.4 mg PO DAILY 01/14/20 Family Medical History Family History: Unable to Obtain Review of Systems Unable to obtain ROS, reason: unable 2/2 pt condition Physical Exam Vital Signs: Vital Signs Temperature 97.9 F 01/20/20 22:00 Pulse Rate 134 H 01/20/20 22:00 Respiratory Rate 42 H 01/20/20 22:00 Blood Pressure 139/106 H 01/20/20 22:00 O2 Sat by Pulse Oximetry (%) 97 01/20/20 22:00 Constitutional: Yes: Anxious, Diaphoresis, Moderate Distress Eyes: Yes: Conjunctiva Clear, EOM Intact, PERRL HENT: Yes: Atraumatic, Normocephalic Neck: Yes: Supple, Trachea Midline Cardiovascular: Yes: Tachycardia, S1, S2 Respiratory: Yes: Accessory Muscle Use, Diminished (bases), On Nasal O2, Tachypnea. No: Stridor Gastrointestinal: Yes: Hypoactive Bowel Sounds, Tenderness, Rebound ...Rectal Exam: Yes: Deferred Renal/: Yes: Anuria Extremities: Yes: Cold, Delayed Capillary Refill Edema: No Peripheral Pulses WNL: Yes Neurological: Yes: Confusion, Cran Nerves II-XII Intact. No: Facial Droop Psychiatric: Yes: Agitated Labs: CBC, BMP 01/20/20 20:10 01/20/20 20:10 Lactate 8---> 6 Assessment/Plan 79 y/o man s/p exploratory lapatomy with sigmoid colon resection, take down of colovesical fistula with Dr Steele on 01/15 now with severe lactic acidosis and respiratory failure likely due to anastamotic leak and intra-abdominal sepsis. P/ -intubate for respiratory failure -optimize MV for acidosis -dry CTAP, discussed with surgery -zosyn -central access -trend lactate -SCD -GI prophy -hold all other meds -NPO [place] ACNP [id number] 45min of CCT not including otherwise billable procedures.
[2020-01-21] MEDS ORDERED: NOREPINEPHRINE BITARTRATE 16,000 MCG in SODIUM CHLORIDE 484 ML IV SCH (01:45)
--- NOTE | 2020-01-21 01:46 | PROC ---
Central Line Insertion Indication: Poor Venous Access, Vasopressor Risks and Benefits Explained: No Consent on Chart: No (Emergent, shock severe acidosi) Central Line: Triple Lumen Catheter Anesthesia: 1% Lidocaine Sterile Technique: Yes Ultrasound Guided Assistance: No Position: Left Subclavian Post Insertion: Yes: Bilateral Breath Sounds, Bilateral Chest Expansion, Chest X-Ray Ordered Sterile Dressing Applied: Yes
--- NOTE | 2020-01-21 01:46 | PROC ---
Intubation - Intubation Reason for Intubation: Respiratory Failure Time of Intubation: 01:44 Intubation Method: orotracheal Blade used: Mac Tube Size (cm): 8.0 Tube position @ lip (cm): 22 Tube position confirmed by: CO2 detector, Chest x-ray, Breath sounds Breath Sounds after Intubation: equal Post Intubation Xray: Yes (ordered) Remarks: large volume of emesis immediately upon induction in airway, suctioned away, no evidence of massive aspiration. 8.0 placed atraumatically. +ETCO2 BL BS.
[2020-01-21] MEDS ORDERED: MIDAZOLAM HCL 2 MG/2 ML SINGLE DOSE VIAL ONE (01:52)
[2020-01-21] MEDS ORDERED: MIDAZOLAM HCL 5 MG/1 ML Single Dose Vial IVPUSH ONE (01:55)
[2020-01-21] MEDS ORDERED: NOREPINEPHRINE BITARTRATE 8,000 MCG/500 ML BAG IVPB SCH (02:00)
[2020-01-21] MEDS ORDERED: DEXTROSE 5%-WATER - 50 ML IVPB ONE (02:44)
[2020-01-21] MEDS ORDERED: PIPERACILLIN/TAZOBACTAM 2.25 GM VIAL IVPB ONE (02:44)
[2020-01-21] MEDS ORDERED: MIDAZOLAM HCL 5 MG/1 ML Single Dose Vial IVPUSH PRN (02:53)
[2020-01-21] MEDS ORDERED: VANCOMYCIN 1 GRAM (PRE-DOCKED) 1,000 MG/250 ML BAG IVPB ONE (03:00)
[2020-01-21] MEDS ORDERED: VASOPRESSIN 40 UNITS in SODIUM CHLORIDE 98 ML IVPB SCH (03:00)
[2020-01-21] MEDS ORDERED: HYDROCORTISONE SOD SUCCINATE 100 MG/2 ML VIAL IVPUSH SCH (03:00)
[2020-01-21 04:20] VITALS: BP 110/82; PULSE 135; TEMP 100.1
--- NOTE | 2020-01-21 05:20 | PN ---
Progress Note (short form) - Note Progress Note: Attending Surgeon Patient was xferred to the ICU and intubated and CT scan a/p was done and findings noted; NGT was placed and patient . placed on pressors attempts to reach the paients son Jossue have been made and a VM was left; will continue to try to reach out to the family Patient experienced loss of pulse and EKG tracing and CODE 99 was called; resuscitation by ICU and Medical House staff and patient was pronounced at 0518 AM; on going attempts to reach the family are in progress. Dennis Steele MD FACS
--- NOTE | 2020-01-21 05:30 | PN ---
Progress Note (short form) - Note Progress Note: Called to bedside for Code 99 by overhead page. Pt had been progressively moribund on maximal vasopressor support and high ventilator settings since admission to ICU. He had become mottled and cyanotic, his abdomen increasing rigged and distended. Dr Steele, the patients surgeon, was at bedside. Pt underwent ACLS efforts which did provide return of spontaneous circulation. At 5:18 the patient was asystolic, apneic, without corneal or other brainstem reflexes. He was pronounced . Dr Steele had made multiple attempt at reaching the patients brother but was unable to reach him, they had spoken earlier in the evening about the patients status. Census and organ donation to be made aware. [place] ACNP [id number]
--- NOTE | 2020-01-21 08:27 | OP ---
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 PROCEDURE: Rigid sigmoidoscopy, sigmoid colon resection, takedown of colovesical fistula. SURGEON: Dennis Steele MD MICROPHONE BOOM OPERATOR: Dee Encarnacion PA-C ANESTHESIA: General. OPERATIVE FINDINGS: There was a near-totally obstructing sigmoid colon lesion that was at least 20 cm from the anal verge. There was no evidence of metastatic disease in the liver and peritoneal surfaces. There was a fistula between the anterior perforated carcinoma and the bladder. Placement of the Wayne under anesthesia revealed stool draining. In addition, an NG tube could not be passed on multiple attempts in the operating room under anesthesia and intraoperative pre-laparotomy rigid sigmoidoscopy up to 20 cm was otherwise unremarkable. PROCEDURE: The patient was placed on the operating room table in the supine position. After the induction of general anesthesia, the patient was placed in the dorsal lithotomy position. A timeout was taken and then rigid sigmoidoscopy carried out to 20 cm and the previously noted findings were observed. The abdomen, perineum and thighs were then prepped with ChloraPrep and draped in a sterile fashion. In addition, the rectum was prepped with Betadine. The peritoneal cavity was entered through a midline incision starting above the umbilicus towards the symphysis pubis. Exploration was carried out and the previously noted findings were observed. Using blunt dissection the sigmoid was mobilized off the bladder. A point of transection of the colon proximal to the obstructing mass was identified and a window made in the mesentery where the colon was divided using a SLOANE stapling device. The mesentery was then serially scored after the sigmoid colon was mobilized from the left lateral peritoneal reflection using electrocautery and blunt dissection. The ureter was identified on the left. The mesentery was divided using a combination of a LigaSure device and suture ligation of the pedicles in the mesentery that were larger than the capability of the LigaSure device. A point distal to the obstructing lesion in the sigmoid was identified and a window made in the mesentery as well and the TA stapling device placed through this and, prior to firing, 2 Juani clamps were placed on the proximal colon and the colon divided using a scalpel after the stapler was fired and the specimen passed off the operative field and sent for pathological examination. Copious irrigation was carried out and then the bladder was distended with 800 mL of normal saline without evidence of a leak. I discussed the operative findings with Dr. Eugene Treadwell by telephone who instructed me to distend the bladder and no leak was found and no repair was done as we could not demonstrate a leak. In addition, the bladder was extremely thick-walled. Next, end-to-end anastomosis was carried out by placing bowel clamps proximally on the colon and then placing the pursestring device proximal to the SLOANE suture line and excising the suture line of the proximal sigmoid colon. The colon was sized and a 28-mm EEA was used to create an end-to-end anastomosis by passing it through the rectum and through the anterior wall of the distal rectosigmoid. The anvil was fired and 2 complete donuts were obtained from the anastomosis. The colon was occluded proximally and the pelvis filled with saline and the colon distended with air with a bulb syringe placed in the rectum, there was no evidence of a leak on 2 tests of the anastomosis. Hemostasis was checked for and noted to be good, and then the peritoneal cavity was copiously irrigated with sterile saline. Multiple attempts were made to identify the NG tube passing through the esophageal hiatus, but it could not be palpated. Two 10-mm Timur-Sage drains were placed through separate stab wounds on either side of the lower abdominal wall and secured to the skin with 2-0 silk suture and the drains placed on either side of the sigmoid extending into the pelvis. Again, hemostasis was checked for and noted to be good and then the abdomen was closed in a single layer using continuous 0 looped Maxon. The subcutaneous tissue was irrigated and surgical mariella used to reapproximate the skin around the umbilicus. The wound was packed with 1-inch Iodoform gauze followed by sterile dressings and the procedure terminated at this point and the patient transferred to the postanesthesia care unit in stable condition awake and alert. At the completion of the procedure needle, instrument and sponge count was correct and gowns, gloves and instruments were changed prior to closure of the abdominal cavity ESTIMATED BLOOD LOSS: 100 mL REPLACEMENTS: Crystalloid. DRAINS: 2 10 mm ANALI in the pelvis. SPECIMEN: Sigmoid colon and stapler donuts and additional portion of distal sigmoid to Pathology. At the completion of the procedure the Wayne catheter was draining clear urine. I, Dennis Steele, was physically present in the operating room from the time the patient was placed on the operating table until he was transferred to the postanesthesia care unit in my accompaniment. MD FIONA Caballero/[id number] MTDD
--- NOTE | 2020-01-22 13:56 | PATH ---
Surgical Pathology Report Patient Name: TALITA ESCOBAR [facility]. Rec. #: [id number] /Age/Gender: 1940 (Age: 79) / M Account: [id number] Location: ICU CREDIT ASSISTANT Taken: 01/16/2020 Received: 01/17/2020 Reported: 01/22/2020 Physicians: Dennis Steele MD Specimen(s) Received A: SIGMOID COLON B: PROXIMAL DONUT C: DISTAL DONUT D: DISTAL SIGMOID E: PROXIMAL SIGMOID Clinical History Intestinal obstruction; large bowel obstruction; sigmoid lesion clinical carcinoma Final Diagnosis A. SIGMOID COLON, RESECTION: ADENOCARCINOMA, MODERATELY DIFFERENTIATED, WITH ASSOCIATED NECROSIS, ACUTE INFLAMMATION, AND TRANSMURAL DEFECT/PERFORATION. TUMOR MEASURES 4.5 X 3.5 CM (GROSS MEASUREMENT). TUMOR LOCATED AT SIGMOID COLON. TUMOR INVADES THE VISCERAL PERITONEUM (INCLUDING TUMOR CONTINUOUS WITH SEROSAL SURFACE THROUGH AREA OF INFLAMMATION) AND ASSOCIATED WITH TRANSMURAL DEFECT/PERFORATION. ACUTE SEROSITIS. LYMPHOVASCULAR IDENTIFIED. NO PERINEURAL INVASION IDENTIFIED. SURGICAL MARGINS ARE NEGATIVE. TWO OF THIRTEEN LYMPH NODES WITH ISOLATED TUMOR CELL CLUSTERS (<0.2 MM) HIGHLIGHTED BY CYTOKERATIN AE1/3 (0/13). PATHOLOGIC STAGE: pT4a pN0. SEE CASE SUMMARY BELOW.SEE COMMENT. B. PROXIMAL DONUT, EXCISION: BENIGN COLONIC MUCOSA WITH FOCAL PATCHY ACUTE INFLAMMATION WITHIN PERICOLONIC ADIPOSE TISSUE. NO MALIGNANCY IDENTIFIED. C. DISTAL DONUT, EXCISION: BENIGN COLONIC MUCOSA. ACUTE SEROSITIS. NO MALIGNANCY IDENTIFIED. D. DISTAL SIGMOID COLON, EXCISION: SEGMENT OF COLON WITH DIVERTICULOSIS AND ACUTE SEROSITIS. SURGICAL MARGINS ARE VIABLE. E. PROXIMAL SIGMOID COLON, EXCISION: SEGMENT OF COLON WITH PATCHY MILD ACUTE INFLAMMATION WITHIN PERICOLONIC ADIPOSE TISSUE. SURGICAL MARGINS ARE VIABLE. Comment: The tumor is associated with a transmural bowel defect/perforation. Intraoperative finding of colovesical fistula noted. Immunohistochemical stains performed and interpreted at [facility] show AE1/3 highlights isolated tumor cells in 2 lymph nodes (A13, A17). Isolated tumor cells (ITCs) are defined as single tumor cells or small clusters of tumor cells measuring 0.2 mm or less, usually found by special techniques such as immunohistochemical staining, and are classified as N0. Additional immunohistochemical stain performed at [place], [place] ([id number]) and interpreted at [facility] for D2-40 highlights lymphovascular invasion. Case discussed with Dr. Steele, 01/19/20. Positive and negative controls (internal if applicable) show appropriate results. Comments Colorectal Carcinoma :Surgical Pathology Cancer Case Summary (Based on AJCC TNM 8 th edition) Procedure _X_ Sigmoidectomy Tumor Site _X_ Sigmoid colon Tumor Size Greatest dimension (centimeters): 4.5 x 3.5 cm (gross measurement) Macroscopic Tumor Perforation _X_ Present Histologic Type _X_ Adenocarcinoma Histologic Grade _X_ G2: Moderately differentiated Tumor Extension _X__ Tumor invades the visceral peritoneum (including tumor continuous with serosal surface through area of inflammation) Margins _X_ All margins are uninvolved by invasive carcinoma, high-grade dysplasia, intramucosal adenocarcinoma, and adenoma Margins examined: proximal, distal, radial/mesenteric Treatment Effect _X_ No known presurgical therapy Lymphovascular Invasion _X_ Present _X_ Small vessel lymphovascular invasion _X_ Intramural Perineural Invasion _X_ Not identified Tumor Deposits _X_ Not identified Regional Lymph Nodes Lymph Node Examination Number of Lymph Nodes Involved: 2 lymph nodes with isolated tumor cell clusters (<0.2 mm) Number of Lymph Nodes Examined: 13 Pathologic Stage Classification (pTNM, AJCC 8th Edition) Primary Tumor (pT) _X_ pT4a: Tumor invades through the visceral peritoneum (including gross perforation of the bowel through tumor and continuous invasion of tumor through areas of inflammation to the surface of the visceral peritoneum) Regional Lymph Nodes (pN) _X_ pN0: No regional lymph node metastasis Immunohistochemical stains for MisMatch Repair Protein Analysis performed at [facility] in [place], [place] ([id number]) and interpreted at [facility] show the following: RESULTS: HMLH-1 INTACT NUCLEAR EXPRESSION HMSH-2 INTACT NUCLEAR EXPRESSION HMSH-6 INTACT NUCLEAR EXPRESSION PMS2 INTACT NUCLEAR EXPRESSION INTERPRETATION: No loss of nuclear expression of MMR proteins: low probability of microsatellite instability-high (MSI-H) Electronically Signed Juana Lauren M.D. Gross Description A. Received in formalin labeled "sigmoid colon," is a 16 cm in length portion of large bowel with one open and one stapled mucosal margin. The serosa is crockett-zazueta with a focal transmural defect consistent with perforation site. The specimen displays moderate attached pericolonic adipose tissue. The lumen contains abundant red blood and fecal material. The mucosa displays a 4.5 x 3.5 cm of crockett red, circumferential, polypoid mass, associated with the rupture site. The mass is 3 cm from the open mucosal margin and 3 cm from the mesenteric margin of resection. The mass invades through the serosa and possibly into the pericolonic adipose tissue. The remaining mucosa is crockett with normal folds. Weight Shifter sections are submitted in 26 cassettes as follows: 1-open mucosal margin (mucosal margin closest to mass); 2-stapled mucosal margin; 3-shave of mesenteric margin of resection; 1-6-dzeugomfbmryii mass; 5-35-cycxvfow from perforation site; 12-uninvolved mucosa; 13-one bisected lymph node; 14-one bisected lymph node; 15-26-one whole possible lymph node each. B. Received in formalin labeled "proximal donut," is a 3.5 x 0.8 x 0.8 cm crockett, irregular portion of bowel, consistent with a donut. The specimen displays metallic mariella and blue suture material. No lesions are identified. Weight Shifter sections are submitted in one cassette. C. Received in formalin labeled "distal donut," is a 1.2 cm in diameter crockett, annular portion of bowel, consistent with a donut. No discrete lesions are identified. The specimen is bisected and entirely submitted in one cassette. D. Received in formalin labeled "distal sigmoid," is a 4 cm in length portion of bowel with one open and one stapled mucosal margin. The serosa is crockett-rojas and smooth with attached fat. The mucosa is unremarkable. Sectioning reveals 2 uncomplicated diverticula. Weight Shifter sections are submitted in 4 cassettes as follows: 1-stapled mucosal margin; 2-open mucosal margin; 3-4-pcnpufbdzos. E. Received in formalin labeled "proximal sigmoid," is a 1.5 cm in length portion of colon with one stapled and one open mucosal margin. The serosa is crockett-rojas and smooth with minimal attached fat. The mucosa is crockett and unremarkable. Weight Shifter sections are submitted in 3 cassettes as follows: 1-stapled mucosal margin; 2-open mucosal margin; 3-[employer] mucosa. 01/17/2020 [facility]01/17/2020
--- NOTE | 2020-01-22 13:58 | DS ---
Physical Examination Vital Signs: Vital Signs Temperature 100.1 F H 01/21/20 04:00 Pulse Rate 135 H 01/21/20 04:00 Respiratory Rate 38 H 01/21/20 04:47 Blood Pressure 110/82 01/21/20 04:00 O2 Sat by Pulse Oximetry (%) 86 L 01/21/20 04:47 Labs: CBC, BMP 01/20/20 20:10 01/20/20 20:10 Discharge Summary Problems reviewed: Yes Reason For Visit: INTESTINAL OBSTRUCTION Hospital Course: admitted for large bowel obstruction, underwent exploratory lapatomy with sigmoid colon resection, take down of colovesical fistula 01/16/2020 apparently was doing well postoperatively, pain was controlled, received IV fluids and postoperative antibiotics. Had started having bowel movements 01/20/2020--suddenly he declined that evening, patient went into acute respiratory failure and septic shock CT chest, abdomen, pelvis-- right upper lobe Pneumonia, an anastomotic rupture, developing abscess Patient coded and 01/21/2020 forensic document examiner informed by Dr. Steele-- an ME case Condition: Stable - Instructions Referrals: Rachel Santillan MD [Primary Care Provider] - Disposition: - Home Medications Comprehensive Discharge Medication List: Ambulatory Orders Finasteride [Proscar -] 5 mg PO DAILY 11/12/19 Cephalexin [Keflex] 500 mg PO TID 01/14/20 Phenazopyridine HCl [Pyridium] 100 mg PO TID 01/14/20 Tamsulosin HCl [Flomax] 0.4 mg PO DAILY 01/14/20
--- NOTE | 2020-01-22 21:49 | EKG ---
Test Reason : Blood Pressure : / mmHG Vent. Rate : 134 BPM Atrial Rate : 134 BPM P-R Int : 146 ms QRS Dur : 090 ms QT Int : 302 ms P-R-T Axes : 025 -83 022 degrees QTc Int : 450 ms SINUS TACHYCARDIA WITH PREMATURE ATRIAL COMPLEXES LEFT AXIS DEVIATION INFERIOR INFARCT , AGE UNDETERMINED ABNORMAL ECG WHEN COMPARED WITH ECG OF 14-JAN-2020 22:36, VENT. RATE HAS INCREASED BY 67 BPM RIGHT BUNDLE BRANCH BLOCK IS NO LONGER PRESENT INFERIOR INFARCT IS NOW PRESENT Confirmed by TRAN COLE MD ([id number]) on 01/22/2020 9:49:24 PM Referred By: Confirmed By:TRAN COLE MD
== END 2020-01-21 10:39 | disposition expired | DRG 329 ==
LOC: JER 11:08 → JERBED 23:39 → J6WEST-2 01-15 16:31 → J6S 01-16 15:15 → JICU 01-21 01:17
PROVIDERS: ADMIT Internal Medicine; ATTEND Internal Medicine
PROC: 0DQE0ZZ Repair Large Intestine, Open Approach (ICD-10-PCS; 2020-01-16)
PROC: 0DTN0ZZ Resection of Sigmoid Colon, Open Approach (ICD-10-PCS; principal; 2020-01-16 08:00)
PROC: 0CHY7BZ Insertion of Airway into Mouth and Throat, Via Natural or Artificial Opening (ICD-10-PCS; 2020-01-21)
PROC: 5A1935Z Respiratory Ventilation, Less than 24 Consecutive Hours (ICD-10-PCS; 2020-01-21)
PROC: 05H633Z Insertion of Infusion Device into Left Subclavian Vein, Percutaneous Approach (ICD-10-PCS; 2020-01-21)
PROC: 0DH673Z Insertion of Infusion Device into Stomach, Via Natural or Artificial Opening (ICD-10-PCS; 2020-01-21)
PROC: 5A12012 Performance of Cardiac Output, Single, Manual (ICD-10-PCS; 2020-01-21)
DX: C18.7 Malignant neoplasm of sigmoid colon (principal); K63.1 Perforation of intestine (nontraumatic); J18.9 Pneumonia, unspecified organism; J95.821 Acute postprocedural respiratory failure; A41.89 Other specified sepsis; A41.9 Sepsis, unspecified organism; R65.21 Severe sepsis with septic shock; K56.609 Unspecified intestinal obstruction, unspecified as to partial versus complete obstruction; N39.0 Urinary tract infection, site not specified; N32.1 Vesicointestinal fistula; E87.2 Acidosis; T81.44XA Sepsis following a procedure, initial encounter; N40.0 Benign prostatic hyperplasia without lower urinary tract symptoms; I10 Essential (primary) hypertension; K64.9 Unspecified hemorrhoids; K40.20 Bilateral inguinal hernia, without obstruction or gangrene, not specified as recurrent; I45.10 Unspecified right bundle-branch block; E86.0 Dehydration; R00.0 Tachycardia, unspecified; Y83.8 Other surgical procedures as the cause of abnormal reaction of the patient, or of later complication, without mention of misadventure at the time of the procedure
CPT/HCPCS: 31500; 36415; 71045-TC-FY; 71250-TC; 74176-TC; 74177-TC; 80048; 80053; 81003; 82140; 82378; 82962; 83605; 83735; 84100; 84484; 85025; 85027; 85610; 85730; 86850; 86900; 86901; 86922; 87040; 87086; 88305-TC; 88307-TC; 88309-TC; 93005; 93010; 93306-TC; 94002; 94010; 94760; 97116-GP; 97162-GP; 99285-25; J0131; J1644; U0003